=== PATIENT | male | born 1960 | race Caucasian/White ===

== ENCOUNTER 2018-01-03 14:30 | Observation (INO) ==
--- NOTE | 2018-01-03 15:10 | XR ---
EXAM DATE: 01/03/2018 2:43 PM EDT AGE/SEX: 57 years / Male INDICATIONS: Chest pain. CLINICAL DATA: This is the patient's initial encounter. Patient reports that signs and symptoms have been present for 1 day and indicates a pain score of 4/10. MEDICAL/SURGICAL HISTORY: Chronic obstructive pulmonary disease. Asthma. Bronchitis. None. COMPARISON: [facility] [place], CHEST 1V SINGLE AP, 11/29/2017. . FINDINGS: A single AP view of the chest demonstrates the lungs to be symmetrically aerated without evidence of mass, infiltrate or effusion. The cardiomediastinal contours are unremarkable. Osseous structures a re intact. CONCLUSION: Negative examination. Electronically signed by: Shashank Lott MD 01/03/2018 3:09 PM EDT
[2018-01-03 15:23] LABS: Baso % (Auto) 0.8 % (0.0-2.0); Eos # (Auto) 0.5 th/mm3 (0.0-0.4); Eos % (Auto) 7.9 % (0.0-4.0); Hematocrit 42.2 % (39.0-51.0); Hemoglobin 14.7 gm/dL (13.0-17.0); Lymph # (Auto) 1.8 th/mm3 (1.0-4.8); Lymph % (Auto) 31.1 % (9.0-44.0); Mean Corpuscular HGB Conc 34.8 % (32.0-36.0); Mean Corpuscular Hemoglobin 31.6 pg (27.0-34.0); Mean Corpuscular Volume 90.8 fL (80.0-100.0); Mean Platelet Volume 7.3 fL (7.0-11.0); Mono # (Auto) 0.5 th/mm3 (0.0-0.9); Mono % (Auto) 8.5 % (0.0-8.0); Neut # (Auto) 3.1 th/mm3 (1.8-7.7); Neut % (Auto) 51.7 % (16.0-70.0); Platelet Count 287 th/mm3 (150-450); Red Blood Count 4.65 mil/mm3 (4.50-5.90); Red Cell Distribution Width 13.2 % (11.6-17.2); White Blood Count 5.9 th/mm3 (4.0-11.0)
[2018-01-03 15:33] LABS: Activated Partial Thrombo Time 27.1 sec (24.3-30.1); Prothrombin Time 10.4 sec (9.8-11.6)
[2018-01-03 15:39] LABS: Alanine Aminotransferase 40 U/L (12-78); Anion Gap 8 meq/L (5-15); Aspartate Aminotransferase 28 U/L (15-37); Blood Urea Nitrogen 8 mg/dL (7-18); Calcium 8.6 mg/dL (8.5-10.1); Carbon Dioxide 28.9 meq/L (21.0-32.0); Chloride 101 meq/L (98-107); Glomerular Filtration Rate Greater Than 89 mL/min (>89); Glucose,Random 85 mg/dL (74-106); Lipase 60 U/L (73-393); Potassium 3.1 meq/L (3.5-5.1); Sodium 138 meq/L (136-145)
[2018-01-03 15:40] LABS: Magnesium 2.4 mg/dL (1.5-2.5)
[2018-01-03 15:44] LABS: Alkaline Phosphatase 90 U/L (45-117); Total Protein 8.4 g/dL (6.4-8.2)
--- NOTE | 2018-01-03 16:50 | ED ---
HPI General Chief Complaint: Chest Pain Stated Complaint: Tightness In Chest Complaint Time Seen by Provider: 01/03/18 14:43 Source: patient Mode of arrival: ambulatory Limitations: no limitations History of Present Illness HPI narrative: Patient is a 57-year-old male presenting to the emerge from for evaluation of chest pain. Patient states it started 1 PM yesterday, patient was at rest when it occurred. He states it starts in his shoulders radiates up to his neck and down his anterior chest wall. Pain is been intermittent since that time, today at approximately 7 AM it started to get worse. Patient was laying in bed when that happened. He states is pressure-like and tight. He reports pain is a 6 out of 10, constant. He reports associated shortness of breath. He denies any headaches, dizziness, abdominal pain, nausea, vomiting. Patient does drink 8 beers daily. He states that he feels like this happens when his potassium gets low. He was seen by his primary doctor yesterday who increased his potassium supplementation to 20 mEq daily. Past medical history significant for chronic back pain, hypertension, degenerative disc disease, obesity. He also reports a history of chronic bronchitis but does not have any history of being diagnosed with COPD or asthma. MD complaint: Reports chest pain STEMI Alert: No Onset (ago): day(s) Duration: intermittent Onset: during rest Pain location: Reports substernal Severity: moderate Severity scale (1-10): 6 Quality: Reports tightness and heaviness Pain radiation: Reports neck and other (Shoulders) Relieving factors: nothing Exacerbating factors: nothing Associated symptoms: Reports dyspnea Treatments prior to arrival chest pain: Reports none Related Data Home Medications Medication Instructions Recorded Confirmed amitriptyline 175 mg PO DAILY 11/29/17 01/03/18 amlodipine 35 mg PO DAILY 11/29/17 01/03/18 gabapentin 800 mg PO BID 11/29/17 01/03/18 hydrochlorothiazide 25 mg PO DAILY 11/29/17 01/03/18 hydrocodone-acetaminophen [[place]] 1 tab PO Q6H PRN 11/29/17 01/03/18 lorazepam [Ativan] 1 mg PO DAILY 11/29/17 01/03/18 omeprazole magnesium [Prilosec OTC] 40 mg PO DAILY 11/29/17 01/03/18 budesonide-formoterol [Symbicort] 2 puff INHALATION BID 01/03/18 01/03/18 cyclobenzaprine 10 mg PO TID PRN 01/03/18 01/03/18 prednisone 5 mg PO DAILY 01/03/18 01/03/18 tiotropium bromide [Spiriva 2 puff INHALATION DAILY 01/03/18 01/03/18 Respimat] Previous Rx's Medication Instructions Recorded potassium chloride [K-Tab] 20 meq PO DAILY #20 tab 11/30/17 Allergies Allergy/AdvReac Type Severity Reaction Status Date / Time buspirone Allergy Severe Edema Verified 11/29/17 22:06 carvedilol Allergy Severe Edema Verified 11/29/17 22:06 Review of Systems ROS: all other systems reviewed are negative [facility] Medical History Medical History Anxiety (Acute) Chronic bronchitis (Acute) Brachial plexus disorders (Acute) Chronic back pain (Acute) Hypertension (Acute) Surgical History Surgical History No history of previous surgery (Acute) Social History Social History Substance History: No History of Abuse Second Hand Smoke Exposure: No Smoking Status: Never smoker How Often Do You Have a Drink Containing Alcohol: Never Recent Travel in [facility] within the Last 8 Weeks: No Recent Out of Country Travel within the Last 8 Weeks: No Immunization History Tetanus Immunization: >5 Years Exam Narrative Exam Narrative: GENERAL: Obese, well-developed, alert male. Presenting in no acute distress. SKIN: Focused skin assessment warm/dry. HEAD: Atraumatic. Normocephalic. EYES: Pupils equal and round. No scleral icterus. No injection or drainage. ENT: No nasal bleeding or discharge. Mucous membranes pink and moist. NECK: Trachea midline. No JVD. CARDIOVASCULAR: Regular rate and rhythm. No murmur appreciated. RESPIRATORY: No accessory muscle use. Clear to auscultation. Breath sounds equal bilaterally. GASTROINTESTINAL: Abdomen soft, non-tender, nondistended. Hepatic and splenic margins not palpable. MUSCULOSKELETAL: No obvious deformities. No clubbing. No cyanosis. No edema. NEUROLOGICAL: Awake and alert. No obvious cranial nerve deficits. Motor grossly within normal limits. Normal speech. PSYCHIATRIC: Appropriate mood and affect; insight and judgment normal. Course Initial Documented Vital Signs Temperature 98.1 F 01/03/18 14:35 Pulse Rate 98 H 01/03/18 14:35 Blood Pressure 147/84 H 01/03/18 14:35 Pulse Oximetry 96 01/03/18 14:35 Last Documented Vital Signs Temperature 98.8 F 01/03/18 19:32 Pulse Rate 89 01/03/18 19:32 Respiratory Rate 18 01/03/18 19:32 Blood Pressure 148/90 H 01/03/18 19:32 Pulse Oximetry 96 01/03/18 19:32 Clinical Decision Support HEART Score Questions History: Moderately suspicious EKG: Non-specific repolarization disturbance Age: 45-64 years Risk Factors: 3 or more Risk Factors or Hx of Atherosclerotic Disease Initial Troponin: Normal Limit Heart Score HEART Score: 5 Medical Decision Making JOSELITO Attestation JOSELITO supervised visit: Yes Attestation: I, Dr. Miles, have reviewed the advance practice practitioner's documentation and am in agreement, met with the patient face to face, made the diagnosis, and the medical decision making was done by me. *My assessment and Findings: Patient is a 57-year-old male who presents with complaint of chest pain. EKG chest x-ray and labs are relatively unremarkable. He is chest pain-free at this time. He has been admitted to the chest pain center for serial troponins and EKGs. MDM Narrative Medical decision making narrative: Patient is 57-year-old male that presented to emerge from for evaluation of possibly 24 hours of chest pain. Patient is mildly hypertensive on arrival, he is otherwise well-appearing. Labs and imaging ordered and pending. Patient was given aspirin as well as nitro paste to his anterior chest wall. Labs reviewed, no acute findings identified other than a potassium level 3.1. Patient was given oral replacement. Chest x-ray shows no acute disease. Heart score is 5. Patient has had no previous cardiac workup. At this time patient will be admitted to the chest pain center for further evaluation. Patient are agreeable, patient was also seen and evaluated by my attending physician. Medical Screen Exam Complete: Yes Emergency Medical Condition: Yes Differential Diagnosis Differential Diagnosis: ACS versus [place] versus bronchitis versus pneumonia versus musculoskeletal pain versus other Medical Records Medical records reviewed: Yes I reviewed the patient's medical records. Lab Data Lab results reviewed: Yes I reviewed the patient's lab results. Result diagrams: 01/03/18 14:58 01/03/18 14:58 Lab Results 01/03/18 01/03/18 01/03/18 Range/Units 14:58 14:58 14:58 WBC 5.9 (4.0-11.0) th/mm3 RBC 4.65 (4.50-5.90) mil/mm3 Hgb 14.7 (13.0-17.0) gm/dL Hct 42.2 (39.0-51.0) % MCV 90.8 (80.0-100.0) fL MCH 31.6 (27.0-34.0) pg MCHC 34.8 (32.0-36.0) % RDW 13.2 (11.6-17.2) % Plt Count 287 (150-450) th/mm3 MPV 7.3 (7.0-11.0) fL Neut % (Auto) 51.7 (16.0-70.0) % Lymph % (Auto) 31.1 (9.0-44.0) % [place] % (Auto) 8.5 H (0.0-8.0) % Eos % (Auto) 7.9 H (0.0-4.0) % Baso % (Auto) 0.8 (0.0-2.0) % Neut # (Auto) 3.1 (1.8-7.7) th/mm3 Lymph # (Auto) 1.8 (1.0-4.8) th/mm3 [place] # (Auto) 0.5 (0.0-0.9) th/mm3 Eos # (Auto) 0.5 H (0.0-0.4) th/mm3 Baso # (Auto) 0.0 (0.0-0.2) th/mm3 WBC Differential . Differential Comment Auto diff final PT 10.4 (9.8-11.6) sec INR 1.0 Ratio APTT 27.1 (24.3-30.1) sec Sodium 138 (136-145) meq/L Potassium 3.1 L (3.5-5.1) meq/L Chloride 101 (98-107) meq/L Carbon Dioxide 28.9 (21.0-32.0) meq/L Anion Gap 8 (5-15) meq/L BUN 8 (7-18) mg/dL Creatinine 0.72 (0.60-1.30) mg/dL Estimated GFR Greater than 89 (>89) mL/min Random Glucose 85 (74-106) mg/dL Calcium 8.6 (8.5-10.1) mg/dL Magnesium (1.5-2.5) mg/dL Total Bilirubin 0.5 (0.2-1.0) mg/dL AST 28 (15-37) U/L ALT 40 (12-78) U/L Alkaline Phosphatase 90 (45-117) U/L Total Creatine Kinase (39-308) U/L Troponin I Less than 0.02 L (0.02-0.05) ng/mL Total Protein 8.4 H (6.4-8.2) g/dL Albumin 4.0 (3.4-5.0) g/dL Lipase 60 L (73-393) U/L 01/03/18 01/03/18 Range/Units 14:58 18:20 WBC (4.0-11.0) th/mm3 RBC (4.50-5.90) mil/mm3 Hgb (13.0-17.0) gm/dL Hct (39.0-51.0) % MCV (80.0-100.0) fL MCH (27.0-34.0) pg MCHC (32.0-36.0) % RDW (11.6-17.2) % Plt Count (150-450) th/mm3 MPV (7.0-11.0) fL Neut % (Auto) (16.0-70.0) % Lymph % (Auto) (9.0-44.0) % [place] % (Auto) (0.0-8.0) % Eos % (Auto) (0.0-4.0) % Baso % (Auto) (0.0-2.0) % Neut # (Auto) (1.8-7.7) th/mm3 Lymph # (Auto) (1.0-4.8) th/mm3 [place] # (Auto) (0.0-0.9) th/mm3 Eos # (Auto) (0.0-0.4) th/mm3 Baso # (Auto) (0.0-0.2) th/mm3 WBC Differential Differential Comment PT (9.8-11.6) sec INR Ratio APTT (24.3-30.1) sec Sodium (136-145) meq/L Potassium (3.5-5.1) meq/L Chloride (98-107) meq/L Carbon Dioxide (21.0-32.0) meq/L Anion Gap (5-15) meq/L BUN (7-18) mg/dL Creatinine (0.60-1.30) mg/dL Estimated GFR (>89) mL/min Random Glucose (74-106) mg/dL Calcium (8.5-10.1) mg/dL Magnesium 2.4 (1.5-2.5) mg/dL Total Bilirubin (0.2-1.0) mg/dL AST (15-37) U/L ALT (12-78) U/L Alkaline Phosphatase (45-117) U/L Total Creatine Kinase 84 81 (39-308) U/L Troponin I Less than 0.02 L (0.02-0.05) ng/mL Total Protein (6.4-8.2) g/dL Albumin (3.4-5.0) g/dL Lipase (73-393) U/L Imaging Data Radiologist's impression: Chest X-Ray 01/03/18 14:43 CONCLUSION: Negative examination. Discharge Plan Discharge Disposition Patient Disposition: 30 Still Patient Discharge Condition Condition: Stable Discharge Details Diagnosis: Atypical chest pain Physicians Team ED Provider: Jessi Miles ED Midlevel Provider: Suzanne Malin Primary Care Provider: David Rahman Attending Provider: Alvarado Villagomez ED Status: Left Department Discharge Information Discharge Date/Time: 01/03/18 19:09
[2018-01-03] MEDS ORDERED: Acetaminophen 500 MG Tablet PO PRN (17:49)
[2018-01-03 19:14] LABS: Creatine Kinase 81 U/L (39-308)
[2018-01-03] MEDS ORDERED: LORazepam 1 MG Tablet PO SCH (22:00)
[2018-01-03] MEDS ORDERED: Amitriptyline 100 MG Tablet PO SCH (22:00)
[2018-01-03 22:10] LABS: Creatine Kinase 81 U/L (39-308)
[2018-01-03] MEDS: Gabapentin 400 MG Capsule PO SCH (22:25)
[2018-01-04] MEDS: Gabapentin 400 MG Capsule PO SCH (08:09)
[2018-01-04 08:28] VITALS: RESP 16; O2SAT 97
--- NOTE | 2018-01-04 09:41 | P.HPCA ---
History of Present Illness Primary Care Physician: David Rahman MD Chief Complaint: Chest pain History of Present Illness: 57-year-old male with history of COPD, hypertension, and chronic back pain presents emergency room for further evaluation of nonexertional chest pain. Onset yesterday morning 0730. Location bilateral shoulders, arms, mid back, substernal, and neck. Characterizes a pressure. No associated symptoms of nausea, vomiting, dyspnea, or diaphoresis. Duration constant, much improved from yesterday. Currently described as intermittent "pinching pains with underlining pressure." No precipitating or relieving factors. Reports last month came to the emergency room for similar discomfort and potassium level was found to be 2.8. Received IV potassium and discharged home with oral potassium prescription. Since this time he has been taking between 10-20 mEq daily potassium. No recent illness, fever, or injury. No known coronary artery disease. Past cardiac testing Remote exercise cardiac testing reported to be normal Social history Known hypertension. No known coronary artery disease, hyperlipidemia, or diabetes. Smoker. Endorses lifetime oral tobacco use. Endorses 8-9 beers daily. Denies any illegal drug use. Disabled. Endorses sedentary lifestyle. . Family history Noncontributory for early onset cardiovascular disease. Mother from breast cancer. Father bladder cancer. - Diagnosis (1) Atypical chest pain (2) Tobacco use (3) Hypokalemia (4) Hypertension (5) Obesity (BMI 30.0-34.9) (6) Alcohol use Review of Systems All other systems reviewed negative except as stated in HPI [facility] - History History Provided By: Patient - Medical History Medical History: Medical History (Last Updated 01/04/18 @ 10:08 by ANTONINA Park) Anxiety Chronic bronchitis DDD (degenerative disc disease) Brachial plexus disorders Chronic back pain Hypertension - Surgical History Surgical History: Surgical History (Last Reviewed 01/03/18 @ 16:48 by ANTONINA Neil) No history of previous surgery - Family History Family History: Family History (Last Updated 01/04/18 @ 10:25 by ANTONINA Park) Mother Breast cancer Father Bladder cancer - Social History I have reviewed the patient's Social History: Yes - Tobacco History Second Hand Smoke Exposure: No Tobacco Use In Past 30 Days: Yes (oral tobacco) Smoking Status: Never smoker Tobacco Type: Smokeless Tobacco - Alcohol History How Often Do You Have a Drink Containing Alcohol: 4 or more times a week (8-9 beers daily) - Substance Use History Substance History: No History of Abuse - Travel History History of Recent Travel: No Recent Travel in the [place] Within the Last 8 Weeks: No Recent Travel Out of the Country Within the Last 8 Weeks: No - Immunization History Tetanus Immunization: >5 Years Medications and Allergies Active Medications: Active Medications Acetaminophen (Tylenol) 500 mg PO Q4H PRN PRN Reason: HEADACHE Last Admin: 01/03/18 22:28 Dose: 500 mg Amitriptyline HCl (Elavil) 100 mg PO [facility] Last Admin: 01/03/18 22:25 Dose: 100 mg Amitriptyline HCl (Elavil) 75 mg PO [facility] Last Admin: 01/03/18 22:25 Dose: 75 mg Gabapentin (Neurontin) 800 mg PO BID [facility] Last Admin: 01/04/18 08:09 Dose: 800 mg Lorazepam (Ativan) 1 mg PO [facility] Last Admin: 01/03/18 22:25 Dose: 1 mg Nitroglycerin (Nitrostat Sl) 0.4 mg SL Q5M PRN PRN Reason: CHEST PAIN Ondansetron HCl (Zofran Inj) 4 mg IV.PUSH Q6H PRN PRN Reason: NAUSEA Sodium Chloride (Ns Flush) 2 ml IV.FLUSH UNSCH PRN PRN Reason: FLUSH AFTER USING IV ACCESS Sodium Chloride (Ns Flush) 2 ml IV.FLUSH BID [facility] Last Admin: 01/04/18 08:31 Dose: 2 ml Allergies Allergy/AdvReac Type Severity Reaction Status Date / Time buspirone Allergy Severe Edema Verified 11/29/17 22:06 carvedilol Allergy Severe Edema Verified 11/29/17 22:06 Home Medications Medication Instructions Recorded Confirmed Type amitriptyline 175 mg PO DAILY 11/29/17 01/03/18 History gabapentin 800 mg PO BID 11/29/17 01/03/18 History hydrocodone-acetaminophen [[place]] 1 tab PO Q6H PRN 11/29/17 01/03/18 History lorazepam [Ativan] 1 mg PO DAILY 11/29/17 01/03/18 History omeprazole magnesium [Prilosec OTC] 40 mg PO DAILY 11/29/17 01/03/18 History budesonide-formoterol [Symbicort] 2 puff INHALATION BID 01/03/18 01/03/18 History cyclobenzaprine 10 mg PO TID PRN 01/03/18 01/03/18 History prednisone 5 mg PO DAILY 01/03/18 01/03/18 History tiotropium bromide [Spiriva 2 puff INHALATION DAILY 01/03/18 01/03/18 History Respimat] Exam Vital signs: Vital Signs 01/03/18 14:35 01/03/18 14:56 01/03/18 15:40 Temperature 98.1 F Pulse Rate 98 H 96 H 91 H Respiratory Rate 18 13 Blood Pressure 147/84 H 156/85 H 150/83 H Pulse Oximetry 96 96 95 01/03/18 16:06 01/03/18 17:32 01/03/18 17:49 Temperature 97.7 F 97.8 F 97.8 F Pulse Rate 88 87 87 Respiratory Rate 16 16 16 Blood Pressure 152/82 H 141/87 H 138/81 Pulse Oximetry 98 99 99 01/03/18 19:32 01/03/18 22:48 01/04/18 04:00 Temperature 98.8 F 97.9 F 97.9 F Pulse Rate 89 78 80 Respiratory Rate 18 18 18 Blood Pressure 148/90 H 127/84 129/74 Pulse Oximetry 96 94 L 91 L 01/04/18 08:00 Temperature 97.5 F L Pulse Rate 92 H Respiratory Rate 16 Blood Pressure 149/96 H Pulse Oximetry 97 Intake & Output 01/03/18 01/04/18 01/04/18 18:59 06:59 18:59 Weight 112.037 kg 112.037 kg Other: Date of Last Bowel Movement 01/03/18 Weight On Admission 112.037 kg Narrative: GENERAL: Alert WN, WD, NAD, pleasant, obese, male who appears older than stated age HEAD: NC, AT EYES: Sclera clear, conjunctiva without injection, pupils equal and round ENT: Mucous membranes pink and moist NECK: Supple, no masses, trachea midline CV: RRR, without murmur, rub, gallop, no JVD, S1-S2 no S3-S4. No carotid or femoral bruits. Chest wall nontender to palpation. RESP: Clear lungs throughout bilateral, no crackles, wheeze, rhonchi, symmetrical chest rise, nonlabored, able to speak in full sentences ABD: Soft, NT, ND, no masses, positive bowel tones EXT: Pulses +2x4, no dependent edema MS: Normal tone x4 extremities, nontender, no obvious deformities, full range of motion NEURO: CN II through CN XII grossly intact, motor strength 5/5 PSYCH: A+O x3, pleasant affect, appropriate speech, mood, insight and judgment SKIN: Normal turgor, normal texture, no lesions, no rashes, brisk cap refill, even hair distribution Results 01/03/18 14:58 01/04/18 09:56 Cardiac Enzymes 01/03/18 01/03/18 01/03/18 Range/Units 14:58 18:20 21:19 AST 28 (15-37) U/L Troponin I Less than 0.02 L Less than 0.02 L Less than 0.02 L (0.02-0.05) ng/mL Coagulation 01/03/18 Range/Units 14:58 PT 10.4 (9.8-11.6) sec APTT 27.1 (24.3-30.1) sec CBC 01/03/18 Range/Units 14:58 WBC 5.9 (4.0-11.0) th/mm3 RBC 4.65 (4.50-5.90) mil/mm3 Hgb 14.7 (13.0-17.0) gm/dL Hct 42.2 (39.0-51.0) % Plt Count 287 (150-450) th/mm3 Neut # (Auto) 3.1 (1.8-7.7) th/mm3 Lymph # (Auto) 1.8 (1.0-4.8) th/mm3 [place] # (Auto) 0.5 (0.0-0.9) th/mm3 Eos # (Auto) 0.5 H (0.0-0.4) th/mm3 Baso # (Auto) 0.0 (0.0-0.2) th/mm3 Comprehensive Metabolic Panel 01/03/18 Range/Units 14:58 Sodium 138 (136-145) meq/L Potassium 3.1 L (3.5-5.1) meq/L Chloride 101 (98-107) meq/L Carbon Dioxide 28.9 (21.0-32.0) meq/L BUN 8 (7-18) mg/dL Creatinine 0.72 (0.60-1.30) mg/dL Calcium 8.6 (8.5-10.1) mg/dL AST 28 (15-37) U/L ALT 40 (12-78) U/L Alkaline Phosphatase 90 (45-117) U/L Total Protein 8.4 H (6.4-8.2) g/dL Albumin 4.0 (3.4-5.0) g/dL Intake and Output 01/03/18 01/04/18 01/04/18 22:59 06:59 14:59 Other: Date of Last Bowel Movement 01/03/18 Weight 112.037 kg Weight On Admission 112.037 kg - Imaging and Cardiology Imaging: Impressions Chest X-Ray 01/03/18 14:43 CONCLUSION: Negative examination. EKG interpretations - EKG EKG results cardiology: sinus rhythm (nsr, lad, no st t segment changes) Caprini VTE Risk Assessment Caprini VTE Risk Assessment: No/Low Risk (score <= 1) Caprini Risk Assessment Model: Point Value = 1 Point Value = 2 Point Value = 3 Point Value = 5 Age 41-60 Minor surgery BMI > 25 kg/m2 Swollen legs Varicose veins or History of unexplained or recurrent spontaneous Oral contraceptives or hormone replacement Sepsis (< 1 month) Serious lung disease, including pneumonia (< 1 month) Abnormal pulmonary function Acute myocardial infarction Congestive heart failure (< 1 month) History of inflammatory bowel disease Medical patient at bed rest Age 61-74 Arthroscopic surgery Major open surgery (> 45 min) Laparoscopic surgery (> 45 min) Malignancy Confined to bed (> 72 hours) Immobilizing plaster cast Central venous access Age >= 75 History of VTE Family history of VTE Factor V Leiden Prothrombin [id number] Lupus anticoagulant Anticardiolipin antibodies Elevated serum homocysteine Heparin-induced thrombocytopenia Other congenital or acquired thrombophilia Stroke (< 1 month) Elective arthroplasty Hip, pelvis, or leg fracture Acute spinal cord injury (< 1 month) Prophylaxis Regimen: Total Risk Factor Score Risk Level Prophylaxis Regimen 0-1 Low Early ambulation 2 Moderate Order ONE of the following: *Sequential Compression Device (SCD) *Heparin 5000 units SQ BID 3-4 Higher Order ONE of the following medications: *Heparin 5000 units SQ TID *Enoxaparin/Lovenox 40 mg SQ daily (WT < 150 kg, CrCl > 30 mL/min) *Enoxaparin/Lovenox 30 mg SQ daily (WT < 150 kg, CrCl > 10-29 mL/min) *Enoxaparin/Lovenox 30 mg SQ BID (WT < 150 kg, CrCl > 30 mL/min) AND/OR *Sequential Compression Device (SCD) 5 or more Highest Order ONE of the following medications: *Heparin 5000 units SQ TID (Preferred with Epidurals) *Enoxaparin/Lovenox 40 mg SQ daily (WT < 150 kg, CrCl > 30 mL/min) *Enoxaparin/Lovenox 30 mg SQ daily (WT < 150 kg, CrCl > 10-29 mL/min) *Enoxaparin/Lovenox 30 mg SQ BID (WT < 150 kg, CrCl > 30 mL/min) AND *Sequential Compression Device (SCD) Assessment and Plan - Assessment (1) Atypical chest pain Code(s): R07.89 - Other chest pain Status: Acute Plan: Admitted chest pain center. Monitored on telemetry overnight. ACS ruled out 3 sets of EKGs and cardiac enzymes. Seen and evaluated by Dr. Alvarado Villagomez. Proceed with exercise cardiac testing. If unremarkable, plans are to discharge home with follow-up with PCP. Reassurance provided discomfort unlikely to be cardiac related however due to multiple risk factors not unreasonable to receive with ETT. (2) Tobacco use Code(s): Z72.0 - Tobacco use Status: Chronic Plan: Strongly encouraged and stressed importance of tobacco cessation. Instructed to quit using oral tobacco. (3) Hypokalemia Code(s): E87.6 - Hypokalemia Status: Acute Plan: 60 mEq potassium given in ER. Recheck potassium level now. Likely will switch hydrochlorothiazide to Aldactone. Encouraged decreasing alcohol intake. (4) Hypertension Code(s): I10 - Essential (primary) hypertension Status: Chronic Plan: Discussed taking amlodipine 10 mg twice daily not more effective than taking 10 mg daily. Discussed taking amlodipine 10 mg daily and switching diuretic from hydrochlorothiazide to Aldactone. This will be determined upon discharge. Discussed importance of tight blood pressure control. Follow-up with primary care provider. If discharged from aldactone will instructed to stop taking potassium supplements. (5) Obesity (BMI 30.0-34.9) Code(s): E66.9 - Obesity, unspecified Status: Chronic Plan: Encouraged lifestyle and dietary modifications. Discussed losing weight will likely improve chronic back pain. (6) Alcohol use Code(s): Z78.9 - Other specified health status Status: Chronic Plan: Strongly encouraged to decrease alcohol intake to no more than 2 drinks daily. Consider stopping all alcohol use. H&P: Quality - VTE Deep Vein Thrombosis/Pulmonary Embolism Present on Admission: No (4) Hypertension Qualifiers: Hypertension type: unspecified Qualified Code(s): I10 - Essential (primary) hypertension
[2018-01-04] MEDS ORDERED: amLODIPine 10 MG Tablet PO SCH (11:00)
[2018-01-04 12:28] VITALS: BP 141/82; PULSE 90; TEMP 97.8
--- NOTE | 2018-01-04 15:42 | TR ---
Date Performed: 01/04/2018 Time Performed: 11:23:07 DOCTOR: Alvarado Villagomez DRUG LIST: CLINICAL HISTORY: CHEST PAIN REASON FOR TEST: REASON FOR ENDING: OBSERVATION: CONCLUSION: Modified lisy protocol completed. Speed maintained at 1.7MPH, grade modified during exam. Stopped test secondary due to leg fatigue. Maximum [place]=454 Max HR Achieved=80.0% Total Exercis e Time=6:07 Maximum CR=926/86 . No reprod chest pain. No ectopy. Fair exercise tolerance, good effort . No st t segment changes to sugg ischemia. Normal bp response. Suboptimal testing due to target hear t. Recovery quick and unremarkable. COMMENTS: submaximal stress test,negative for ischemia.
--- NOTE | 2018-01-04 15:46 | ECG ---
Date Performed: 01/03/2018 Time Performed: 21:39:30 PTAGE: 57 years EKG: Sinus rhythm MARKED LEFT AXIS DEVIATION Poor R wave progression ABNORMAL ECG PREVIOUS TRACING : 01/03/2018 18.31 Since previous tracing, no significant change noted DOCTOR: Alvarado Villagomez Interpretating Date/Time 01/04/2018 15:44:29
--- NOTE | 2018-01-04 15:47 | ECG ---
Date Performed: 01/03/2018 Time Performed: 18:31:07 PTAGE: 57 years EKG: Sinus rhythm POSSIBLE LEFT ATRIAL ENLARGEMENT MARKED LEFT AXIS DEVIATION Poor R wave progression ABNORMAL ECG PREVIOUS TRACING : 01/03/2018 15.09 Since previous tracing, no significant change noted DOCTOR: Alvarado Villagomez Interpretating Date/Time 01/04/2018 15:46:10
--- NOTE | 2018-01-04 15:47 | ECG ---
Date Performed: 01/03/2018 Time Performed: 15:09:40 PTAGE: 57 years EKG: Sinus rhythm POSSIBLE LEFT ATRIAL ENLARGEMENT LEFT ANTERIOR FASCICULAR BLOCK Poor R wave progression ABNORMAL ECG PREVIOUS TRACING : 11/29/2017 22.02 DOCTOR: Alvarado Villagomez Interpretating Date/Time 01/04/2018 15:47:34
== END 2018-01-04 14:06 | disposition home or self-care (01) ==
LOC: NEPE 14:30 → NEDA 14:30 → NEPGCP 19:05
DX: M54.9 Dorsalgia, unspecified; Z80.3 Family history of malignant neoplasm of breast; Z68.33 Body mass index [BMI] 33.0-33.9, adult; J20.9 Acute bronchitis, unspecified; I10 Essential (primary) hypertension; Z79.51 Long term (current) use of inhaled steroids; E87.6 Hypokalemia; E66.9 Obesity, unspecified; G89.29 Other chronic pain; F17.200 Nicotine dependence, unspecified, uncomplicated; J44.0 Chronic obstructive pulmonary disease with (acute) lower respiratory infection; R94.31 Abnormal electrocardiogram [ECG] [EKG]; Z80.52 Family history of malignant neoplasm of bladder; F41.9 Anxiety disorder, unspecified; R07.9 Chest pain, unspecified

== ENCOUNTER 2018-01-10 16:54 | Inpatient (IN) ==
[2018-01-10] MEDS ORDERED: Sod Chloride 0.9% Inj 1,000 ML IV.SIG ONE (17:32)
[2018-01-10] MEDS ORDERED: Tetanus/Diphtheria Toxoid Adult Vaccine Inj 0.5 ML Vial IM ONE (17:38)
--- NOTE | 2018-01-10 17:40 | ED ---
HPI General Chief complaint: Head Injury Stated complaint: Fall/Head Complaint Time Seen by Provider: 01/10/18 17:08 Source: patient Mode of arrival: ambulatory Limitations: no limitations History of Present Illness HPI Narrative: 57-year-old male with PMH of HTN presents the ED via private vehicle for evaluation after fall from standing. This occurred approximately 45 minutes before arrival. Patient states that he slipped in a puddle, fell backwards, striking his head against the concrete. He denies loss of consciousness. On presentation he complains of "feeling out of it". He denies headache, vision changes, malocclusion. He notes that he has had both red and clear fluids draining from the nasal passages. He notes bleeding from the right ear. He denies unilateral weakness, difficulties with speech, facial droop, pain with ocular motions, numbness, tingling, weakness, limitations or range of motion of the extremities. He has been ambulatory since the accident. No treatment attempted before arrival. Related Data Home Medications Medication Instructions Recorded Confirmed amitriptyline 175 mg PO DAILY 11/29/17 01/10/18 gabapentin 800 mg PO BID 11/29/17 01/10/18 hydrocodone-acetaminophen [[place]] 1 tab PO Q6H PRN 11/29/17 01/10/18 lorazepam [Ativan] 1 mg PO DAILY 11/29/17 01/10/18 omeprazole magnesium [Prilosec OTC] 40 mg PO DAILY 11/29/17 01/10/18 budesonide-formoterol [Symbicort] 2 puff INHALATION BID 01/03/18 01/10/18 cyclobenzaprine 10 mg PO TID PRN 01/03/18 01/10/18 prednisone 5 mg PO DAILY 01/03/18 01/10/18 tiotropium bromide [Spiriva 2 puff INHALATION DAILY 01/03/18 01/10/18 Respimat] Previous Rx's Medication Instructions Recorded amlodipine [Norvasc] 10 mg PO DAILY #30 tab 01/04/18 spironolactone [Aldactone] 25 mg PO DAILY #30 tab 01/04/18 Allergies Allergy/AdvReac Type Severity Reaction Status Date / Time buspirone Allergy Severe Edema Verified 01/10/18 17:14 carvedilol Allergy Severe Edema Verified 10/25/18 17:14 Review of Systems ROS: all other systems reviewed are negative [facility] Medical History Medical History Anxiety (Acute) Brachial plexus disorders (Acute) Chronic back pain (Acute) Chronic bronchitis (Acute) DDD (degenerative disc disease) (Acute) Hypertension (Acute) Surgical History Surgical History No history of previous surgery (Acute) Family History Family History Mother Breast cancer Father Bladder cancer Social History Social History Substance History: No History of Abuse Second Hand Smoke Exposure: No Smoking Status: Never smoker Tobacco Type: Smokeless Tobacco How Often Do You Have a Drink Containing Alcohol: 4 or more times a week Hx Recent Travel: No Recent Out of Country Travel within the Last 8 Weeks: No Immunization History Tetanus Immunization: >5 Years Exam Narrative Exam Narrative: GENERAL: Well-nourished, well-developed white male in no acute distress. Sitting up on the stretcher wearing a c-collar. SKIN: Warm and dry. 3-4 cm laceration posterior scalp. No active bleeding. HEAD: Normocephalic. Atraumatic. No raccoon eyes or carlton sign. No tenderness to palpation of the skull. No bony step-offs. No malocclusion of the teeth. EYES: No scleral icterus. No injection or drainage. PERRLA. EOMI. ENT: Right tympanic membrane obscured by blood in the ear canal. Left tympanic membrane pearly [place]win. Nasal mucosa is moist. No evidence of septal hematoma. Small amount of epistaxis. Oropharynx without erythema, edema or exudate. NECK: Supple, trachea midline. No JVD or lymphadenopathy. Cervical collar retained pending radiologic studies. CARDIOVASCULAR: Regular rate and rhythm without murmurs, gallops, or rubs. 2+ DP and radial pulses bilaterally. RESPIRATORY: Breath sounds clear and equal bilaterally. No accessory muscle use. GASTROINTESTINAL: Abdomen soft, non-tender, nondistended. + Bowel sounds MUSCULOSKELETAL: No cyanosis, or edema. No tenderness to palpation or limitations to range of motion of the joints of the upper and lower extremities bilaterally. NEUROLOGICAL: Awake and alert. Cranial nerves II through XII intact. Motor and sensory grossly within normal limits. 5/5 muscle strength in all muscle groups. Normal speech. BACK: Nontender without obvious deformity. No CVA tenderness. No midline tenderness. Procedures Laceration Laceration 1: Site: scalp Size (cm): 2.5 Description: linear Depth: simple, single layer Pre-repair:: wound explored, irrigated extensively and deep structures intact Skin layer closed with: ana Number of sutures:: 5 Course Initial Documented Vital Signs Temperature 98.3 F 01/10/18 17:00 Pulse Rate 100 H 01/10/18 17:00 Respiratory Rate 20 01/10/18 17:00 Blood Pressure 152/84 H 01/10/18 17:00 Pulse Oximetry 97 01/10/18 17:00 Last Documented Vital Signs Temperature 98.3 F 01/10/18 17:00 Pulse Rate 92 H 01/10/18 18:30 Respiratory Rate 18 01/10/18 18:30 Blood Pressure 155/87 H 01/10/18 18:30 Pulse Oximetry 97 01/10/18 18:30 Medical Decision Making JOSELITO Attestation JOSELTIO supervised visit: Yes Attestation: I, Dr. Coyle, have reviewed the advance practice practitioner's documentation and am in agreement, met with the patient face to face, made the diagnosis, and the medical decision making was done by me. *My assessment and Findings: Patient is a 57 year old male who comes in after a slip and fall today. He complains of pain to his head and feeling "woozy." Exam shows laceration to the back of the head, bleeding in the right ear. He is awake, alert, oriented x 4. CT head concerning for subdural, subarachnoid and skull fracture. Dr. Reyes of neurosurgery consulted, patient admitted to ICU. [facility] Narrative Medical decision making narrative: 57-year-old male with PMH of HTN, current smoker presents the ED for evaluation after fall from standing. Patient states that he struck the back of his head on the concrete. He denies loss of consciousness. On presentation he complains of "feeling out of it." Vitals reviewed. No focal neuro deficits on exam. He does have a 2.5 cm laceration on the posterior scalp, blood in the right external canal which obscures the tympanic membrane and small amount of rhinorrhea. No evidence of septal hematoma. Scalp laceration was closed with ana. CT scans of the head, cervical spine and facial bones reveal right temporal bone fracture, nondisplaced and small bilateral subdural and subarachnoid hemorrhages. No midline shift noted. I discussed the results of the workup with the patient and his . They are agreeable to admission. I spoke with Dr. Reyes who recommends admission to the ICU. I spoke with Dr. Jeter who agrees to accept the patient to the ICU. Please see neurosurgery and medicine notes for disposition. Medical Screen Exam Complete: Yes Emergency Medical Condition: Yes Differential Diagnosis Differential Diagnosis: Fall from standing versus skull fracture versus ICH versus other Lab Data Result diagrams: 01/10/18 17:39 01/10/18 17:39 Lab Results 01/10/18 01/10/18 01/10/18 Range/Units 17:39 17:39 17:39 WBC 7.0 (4.0-11.0) th/mm3 RBC 4.61 (4.50-5.90) mil/mm3 Hgb 14.7 (13.0-17.0) gm/dL Hct 42.2 (39.0-51.0) % MCV 91.5 (80.0-100.0) fL MCH 31.9 (27.0-34.0) pg MCHC 34.9 (32.0-36.0) % RDW 13.3 (11.6-17.2) % Plt Count 256 (150-450) th/mm3 MPV 7.2 (7.0-11.0) fL Neut % (Auto) 62.5 (16.0-70.0) % Lymph % (Auto) 24.8 (9.0-44.0) % [place] % (Auto) 7.8 (0.0-8.0) % Eos % (Auto) 4.2 H (0.0-4.0) % Baso % (Auto) 0.7 (0.0-2.0) % Neut # (Auto) 4.3 (1.8-7.7) th/mm3 Lymph # (Auto) 1.7 (1.0-4.8) th/mm3 [place] # (Auto) 0.5 (0.0-0.9) th/mm3 Eos # (Auto) 0.3 (0.0-0.4) th/mm3 Baso # (Auto) 0.1 (0.0-0.2) th/mm3 WBC Differential . Differential Comment Auto diff final PT 10.5 (9.8-11.6) sec INR 1.0 Ratio Sodium (136-145) meq/L Potassium (3.5-5.1) meq/L Chloride (98-107) meq/L Carbon Dioxide (21.0-32.0) meq/L Anion Gap (5-15) meq/L BUN (7-18) mg/dL Creatinine (0.60-1.30) mg/dL Estimated GFR (>89) mL/min Random Glucose (74-106) mg/dL Calcium (8.5-10.1) mg/dL Blood Type O Positive Antibody Screen Negative 01/10/18 Range/Units 17:39 WBC (4.0-11.0) th/mm3 RBC (4.50-5.90) mil/mm3 Hgb (13.0-17.0) gm/dL Hct (39.0-51.0) % MCV (80.0-100.0) fL MCH (27.0-34.0) pg MCHC (32.0-36.0) % RDW (11.6-17.2) % Plt Count (150-450) th/mm3 MPV (7.0-11.0) fL Neut % (Auto) (16.0-70.0) % Lymph % (Auto) (9.0-44.0) % [place] % (Auto) (0.0-8.0) % Eos % (Auto) (0.0-4.0) % Baso % (Auto) (0.0-2.0) % Neut # (Auto) (1.8-7.7) th/mm3 Lymph # (Auto) (1.0-4.8) th/mm3 [place] # (Auto) (0.0-0.9) th/mm3 Eos # (Auto) (0.0-0.4) th/mm3 Baso # (Auto) (0.0-0.2) th/mm3 WBC Differential Differential Comment PT (9.8-11.6) sec INR Ratio Sodium 136 (136-145) meq/L Potassium 3.4 L (3.5-5.1) meq/L Chloride 98 (98-107) meq/L Carbon Dioxide 27.6 (21.0-32.0) meq/L Anion Gap 10 (5-15) meq/L BUN 9 (7-18) mg/dL Creatinine 0.83 (0.60-1.30) mg/dL Estimated GFR Greater than 89 (>89) mL/min Random Glucose 88 (74-106) mg/dL Calcium 8.4 L (8.5-10.1) mg/dL Blood Type Antibody Screen Imaging Data Radiologist's impression: Head CT 01/10/18 17:30 CONCLUSION: 1. Small amount of subdural and subarachnoid hemorrhage anteriorly predominantly in the left frontal region associated with a small hemorrhagic contusions in the medial left frontal lobe. No significant mass effect or midline shift this time. 2. Remote lacunar infarct left basal ganglia. . Cervical Spine CT 01/10/18 17:31 CONCLUSION: 1. No acute findings. Mild degenerative change. Face CT 01/10/18 17:36 CONCLUSION: 1. Nondisplaced fracture of the right temporal bone with some hemorrhage in the aerated portions of the right temporal bone. Trace pneumocephalus on the right. 2. There is also trace subdural and subarachnoid hemorrhage anteriorly predominantly of the left frontal region with a small hemorrhagic contusion of the left frontal lobe. There is also trace subarachnoid and subdural hemorrhage in the right temporal region. No significant mass effect or shift. Discharge Plan Discharge Disposition Patient Disposition: 30 Still Patient Physicians Team ED Provider: Brii Coyle ED Midlevel Provider: Soniya Crow Primary Care Provider: David Rahman Attending Provider: Jaycee Jeter Other Providers: Zelalem Reyes Status ED Status: Admitted Patient
[2018-01-10 18:05] LABS: Baso # (Auto) 0.1 th/mm3 (0.0-0.2); Baso % (Auto) 0.7 % (0.0-2.0); Eos # (Auto) 0.3 th/mm3 (0.0-0.4); Eos % (Auto) 4.2 % (0.0-4.0); Hematocrit 42.2 % (39.0-51.0); Hemoglobin 14.7 gm/dL (13.0-17.0); Lymph # (Auto) 1.7 th/mm3 (1.0-4.8); Lymph % (Auto) 24.8 % (9.0-44.0); Mean Corpuscular HGB Conc 34.9 % (32.0-36.0); Mean Corpuscular Hemoglobin 31.9 pg (27.0-34.0); Mean Corpuscular Volume 91.5 fL (80.0-100.0); Mean Platelet Volume 7.2 fL (7.0-11.0); Mono # (Auto) 0.5 th/mm3 (0.0-0.9); Mono % (Auto) 7.8 % (0.0-8.0); Neut # (Auto) 4.3 th/mm3 (1.8-7.7); Neut % (Auto) 62.5 % (16.0-70.0); Platelet Count 256 th/mm3 (150-450); Red Blood Count 4.61 mil/mm3 (4.50-5.90); Red Cell Distribution Width 13.3 % (11.6-17.2)
--- NOTE | 2018-01-10 18:14 | CT ---
EXAM DATE: 01/10/2018 6:09 PM EDT AGE/SEX: 57 years / Male INDICATIONS: Trauma, fall. Laceration to back of head. CLINICAL DATA: This is the patient's initial encounter. Patient reports that signs and symptoms have been present for 1 day and indicates a pain score of 7/10. MEDICAL/SURGICAL HISTORY: Hypertension. Brachial plexus disorder, degenerative disc disease. None. RADIATION DOSE: 66.34 CTDI (mGy) COMPARISON: No prior exams available for comparison. TECHNIQUE: CT of the head without contrast. Using automated exposure control and adjustment of the mA and/or kV according to patient size, radiation dose was kept as low as reasonably achievable to ob tain optimal diagnostic quality images. DICOM format image data is available electronically for revi ew and comparison. FINDINGS: There is a small amount of subdural hemorrhage anteriorly predominantly on the left side and extendin g into the interhemispheric fissure. This measures around 3 mm in thickness. There is also some subar achnoid hemorrhage anteriorly and a small hemorrhagic contusion in the left frontal lobe medially. Th ere is no significant mass effect or midline shift at this time. No hydrocephalus. No calvarial fract ure is identified. There is mucosal thickening in the frontal sinus and partial opacification of the ethmoid air cells and maxillary sinuses. Remote lacunar infarct left basal ganglia. CONCLUSION: 1. Small amount of subdural and subarachnoid hemorrhage anteriorly predominantly in the left frontal region associated with a small hemorrhagic contusions in the medial left frontal lobe. No significan t mass effect or midline shift this time. 2. Remote lacunar infarct left basal ganglia. . Electronically signed by: Charlie Stone MD 01/10/2018 6:13 PM EDT
[2018-01-10 18:15] LABS: Prothrombin Time 10.5 sec (9.8-11.6)
[2018-01-10 18:21] LABS: Anion Gap 10 meq/L (5-15); Blood Urea Nitrogen 9 mg/dL (7-18); Calcium 8.4 mg/dL (8.5-10.1); Carbon Dioxide 27.6 meq/L (21.0-32.0); Chloride 98 meq/L (98-107); Glomerular Filtration Rate Greater Than 89 mL/min (>89); Glucose,Random 88 mg/dL (74-106); Potassium 3.4 meq/L (3.5-5.1); Sodium 136 meq/L (136-145)
--- NOTE | 2018-01-10 18:25 | CT ---
EXAM DATE: 01/10/2018 6:10 PM EDT AGE/SEX: 57 years / Male INDICATIONS: Trauma, fall. Laceration to back of head. CLINICAL DATA: This is the patient's initial encounter. Patient reports that signs and symptoms have been present for 1 day and indicates a pain score of 7/10. MEDICAL/SURGICAL HISTORY: Hypertension. Brachial plexus disorder, degenerative disc disease. N one. RADIATION DOSE: 25.72 CTDI (mGy) COMPARISON: No prior exams available for comparison. TECHNIQUE: Contiguous axial images were obtained using helical multirow detector technique. The vol umetric data was post-processed with multiplanar reconstruction in oblique axial, sagittal, and coron al planes. Using automated exposure control and adjustment of the mA and/or kV according to patient s ize, radiation dose was kept as low as reasonably achievable to obtain optimal diagnostic quality dorinda ges. DICOM format image data is available electronically for review and comparison. FINDINGS: There is mild degenerative disc disease. No fracture or spondylolisthesis. No prevertebral soft tissu e swelling. There is no significant bony canal stenosis. CONCLUSION: 1. No acute findings. Mild degenerative change. Electronically signed by: Charlie Stone MD 01/10/2018 6:24 PM EDT
--- NOTE | 2018-01-10 18:30 | CT ---
EXAM DATE: 01/10/2018 6:10 PM EDT AGE/SEX: 57 years / Male INDICATIONS: Trauma, fall. Laceration to back of head. CLINICAL DATA: This is the patient's initial encounter. Patient reports that signs and symptoms have been present for 1 day and indicates a pain score of 7/10. MEDICAL/SURGICAL HISTORY: Hypertension. Brachial plexus disorder, degenerative disc disease. N one. RADIATION DOSE: 21.96 CTDI (mGy) COMPARISON: No prior exams available for comparison. TECHNIQUE: Contiguous images in the axial and coronal planes were obtained using helical multirow de tector technique. Using automated exposure control and adjustment of the mA and/or kV according to p atient size, radiation dose was kept as low as reasonably achievable to obtain optimal diagnostic yariel lity images. DICOM format image data is available electronically for review and comparison. FINDINGS: There is a nondisplaced fracture through the anterolateral aspect of the right temporal bone predomin antly involving the aerated portion with fracture line extending slightly into the squamous portion o f the right temporal lobe, nondisplaced. There is a small amount of pneumocephalus on the right side no temporal bone fracture. Fracture line extends to toward the base of the zygomatic arch posteriorly but does not extend into the zygomatic arch. Partial opacification ethmoid air cells and mucosal thickening in the remainder of the paranasal sinu ses. CONCLUSION: 1. Nondisplaced fracture of the right temporal bone with some hemorrhage in the aerated portions of the right temporal bone. Trace pneumocephalus on the right. 2. There is also trace subdural and subarachnoid hemorrhage anteriorly predominantly of the left fro ntal region with a small hemorrhagic contusion of the left frontal lobe. There is also trace subarach noid and subdural hemorrhage in the right temporal region. No significant mass effect or shift. Electronically signed by: Charlie Stone MD 01/10/2018 6:29 PM EDT
[2018-01-10] MEDS ORDERED: Morphine Inj 4 MG/ML Vial IV.PUSH ONE ×2 (18:49→21:08)
[2018-01-10] MEDS ORDERED: Bisacodyl 10 MG Supp RECTAL PRN (21:10)
[2018-01-10] MEDS ORDERED: Potassium Phosphate Inj 30 MMOL in Sodium Chlor 0.9% Inj 250 ML IV.SIG PRN (21:13)
[2018-01-10] MEDS ORDERED: Potassium Chlor 20 mEq Premix 20 MEQ/100 ML PIGGYBACK IV.SIG PRN ×2 (21:13)
[2018-01-10] MEDS ORDERED: Potassium Phosphate 500 MG Soluble Tablet PO PRN ×2 (21:13)
[2018-01-10] MEDS ORDERED: Magnesium Oxide 400 MG Tablet PO PRN (21:13)
[2018-01-10] MEDS ORDERED: Magnesium Sulfate Inj 2 GM in Sodium Chlor 0.9% Inj 96 ML IV.SIG PRN (21:13)
[2018-01-10] MEDS ORDERED: Potassium Chloride 25 MEQ Effervescent Tablet PO PRN (21:13)
[2018-01-10] MEDS ORDERED: Potassium Chlor 40 mEq Premix 40 MEQ/100 ML PIGGYBACK IV.SIG PRN ×2 (21:13)
[2018-01-10] MEDS ORDERED: Sodium Phosphate Inj 30 MMOL in Sodium Chlor 0.9% Inj 250 ML IV.SIG PRN (21:13)
[2018-01-10] MEDS ORDERED: Magnesium Sulfate Inj 4 GM in Sodium Chlor 0.9% Inj 92 ML IV.SIG PRN (21:13)
[2018-01-10] MEDS ORDERED: Sod Chloride 0.9% Inj 1,000 ML IV.CONT SCH (21:15)
[2018-01-10] MEDS ORDERED: hydrALAZINE HCl Inj 20 MG/ML Vial IV.PUSH PRN (21:15)
--- NOTE | 2018-01-10 23:19 | P.HPCC ---
History of Present Illness Service: Critical care medicine Primary Care Physician: David Rahman MD Chief Complaint: Fall with skull fracture, hemorrhagic contusions, subdural History of Present Illness: 57-year-old [id number] male with past medical history of hypertension, chronic pain related to left brachial plexus injury and chronic back pain presents to [facility] emergency department after he slipped on a slick wet surface of his carport around 4:15 pm on 01/10. He says he hit the back of his head on concrete and then got up unassisted. Denies LOC or seizure. He was not feeling like himself and was nauseated with epistaxis and bleeding from his right ear so he sought medical attention. Workup included CT brain/face which demonstrated nondisplaced R temporal bone fracture with trace pneumocephalus, trace R temporal subdural and subarachnoid, and L frontal contusion. CT Cspine showed no acute findings. Scalp laceration was repaired with ana in the ED. Neurosurgery was consulted by emergency medicine provider and admission to [facility] operations has been requested. He is not on antihypertensive or antiplatelet therapy. He is on antihypertensives and already took them today. - Diagnosis (1) Fall (2) Temporal skull fracture (3) Frontal lobe contusion (4) Contusion of right temporal lobe (5) Anxiety (6) Chronic pain (7) Brachial plexus injury, left (8) Hypokalemia (9) Hypertension (10) Obesity (BMI 30.0-34.9) (11) Chronic GERD (12) Bronchitis Inpatient Certification: I certify that the inpatient services were ordered in accordance with Medicare regulations governing the order. This includes certification that hospital inpatient services are reasonable and necessary and in the case of services not specified as inpatient-only under 42 CFR 419.22(n), that they are appropriately provided as inpatient services in accordance to with the 2-midnight benchmark under 43 CFR 412.3(e) Estimated Total Length of Stay (Days): 2 Plans for Post Hospital Care: Home Review of Systems Constitutional: Denies anorexia Eyes: Denies change in vision, Denies loss of vision Cardiovascular: Denies chest pain Respiratory: Denies cough Gastrointestinal: Denies abdominal pain Genitourinary: Denies painful urination Musculoskeletal: Denies tingling Neurologic: Denies abnormal hearing Psychiatric: Reports anxiety Endocrine: Denies excessive sweating, Denies increased hunger Hematologic/Lymphatic: Denies easy bleeding, Denies easy bruising PMFSH - History History Provided By: Patient - Medical History Medical History: Medical History (Last Updated 01/10/18 @ 23:41 by Jaycee Jeter MD) GERD (gastroesophageal reflux disease) Anxiety Brachial plexus disorders Chronic back pain Chronic bronchitis DDD (degenerative disc disease) Hypertension - Surgical History Surgical History: Surgical History (Last Reviewed 01/10/18 @ 18:45 by VITOR Kimbrough) No history of previous surgery - Family History Family History: Family History (Last Reviewed 01/10/18 @ 18:45 by VITOR Kimbrough) Mother Breast cancer Father Bladder cancer - Tobacco History Second Hand Smoke Exposure: No Smoking Status: Never smoker Tobacco Type: Smokeless Tobacco - Alcohol History How Often Do You Have a Drink Containing Alcohol: 4 or more times a week - Substance Use History Substance History: No History of Abuse - Travel History History of Recent Travel: No Recent Travel Out of the Country Within the Last 8 Weeks: No - Immunization History Tetanus Immunization: >5 Years Medications and Allergies Active Medications: Active Medications Acetaminophen (Tylenol) 650 mg PO Q6H PRN PRN Reason: prn pain or temp >100.4 Hydrocodone Bitart/Acetaminophen (Salix 10/325) 1 tab PO Q4H PRN PRN Reason: pain 1-10 Last Admin: 01/10/18 22:41 Dose: 1 tab Al Hydroxide/Mg Hydroxide (Milk Of Tony Card) 30 ml PO Q12H PRN PRN Reason: Mild Constipation Bisacodyl (Dulcolax Supp) 10 mg RECTAL DAILY PRN PRN Reason: SEVERE CONSITIPATION Chlorhexidine Gluconate (Chlorhexidine 2% Cloth) 3 pack TOPICAL DAILY@0400 MONICO Stop: 01/16/18 03:59 Chlorhexidine Gluconate (Chlorhexidine 2% Cloth) 3 pack TOPICAL DAILY@0400 PRN PRN Reason: Extra cloth needed Stop: 01/16/18 03:59 Hydralazine HCl (Apresoline Inj) 10 mg IV.PUSH Q30M PRN PRN Reason: SBP >160 Sodium Chloride (Ns Inj) 1,000 mls @ 70 mls/hr IV.CONT .[id number] MONICO Last Admin: 01/10/18 22:15 Dose: 70 mls/hr Magnesium Sulfate 4 gm/ Sodium (Chloride) 100 mls @ 50 mls/hr IV.SIG UNSCH PRN PRN Reason: For Magnesium 0.9 - 1.1 mg/dL Magnesium Sulfate 2 gm/ Sodium (Chloride) 100 mls @ 50 mls/hr IV.SIG UNSCH PRN PRN Reason: For Magnesium 1.2 - 1.6 mg/dL Potassium Chloride (Kcl 40 Meq Premix Inj) 40 meq in 100 mls @ 25 mls/hr IV.SIG Q2H PRN PRN Reason: For Potassium 2.8 - 3.2 mEq/L Potassium Chloride (Kcl 20 Meq Premix Inj) 20 meq in 100 mls @ 50 mls/hr IV.SIG Q2H PRN PRN Reason: For Potassium 3.3 - 3.5 mEq/L Potassium Chloride (Kcl 40 Meq Premix Inj) 40 meq in 100 mls @ 25 mls/hr IV.SIG UNSCH PRN PRN Reason: For Potassium 3.3 - 3.5 mEq/L Potassium Phosphate 30 mmol/ (Sodium Chloride) 260 mls @ 42 mls/hr IV.SIG UNSCH PRN PRN Reason: SEE LABEL COMMENTS Sodium Phosphate 30 mmol/ (Sodium Chloride) 260 mls @ 42 mls/hr IV.SIG UNSCH PRN PRN Reason: For Phosphorus < 2.5 mg/dL Potassium Chloride (Kcl 20 Meq Premix Inj) 20 meq in 100 mls @ 50 mls/hr IV.SIG Q2H PRN PRN Reason: For Potassium 2.8 - 3.2 mEq/L Lactulose (Lactulose Liq) 30 ml PO DAILY PRN PRN Reason: SEVERE CONSITIPATION Magnesium Oxide (Mag-Ox) 800 mg PO UNSCH PRN PRN Reason: For Magnesium 1.2 - 1.6 mg/dL Morphine Sulfate (Morphine Inj) 2 mg IV.PUSH Q3H PRN PRN Reason: BREAKTHROUGH PAIN Ondansetron HCl (Zofran Inj) 4 mg IV.PUSH Q6H PRN PRN Reason: NAUSEA OR VOMITING Last Admin: 01/10/18 21:59 Dose: 4 mg Pantoprazole Sodium (Protonix) 40 mg PO DAILY MONICO Potassium Bicarb/Potassium Chloride (K-Lyte Cl Eff) 50 meq PO UNSCH PRN PRN Reason: For Potassium 3.3 - 3.5 mEq/L Potassium Phosphate (K-Phos Original) 2,000 mg PO Q4H PRN PRN Reason: Phosphorus Less Than 2.5 mg/dL Potassium Phosphate (K-Phos Original) 2,000 mg PO UNSCH PRN PRN Reason: SEE LABEL COMMENTS Senna/Docusate Sodium (Candice-Colace) 1 tab PO BID MONICO Sennosides (Senokot) 17.2 mg PO Q12H PRN PRN Reason: Moderate Constipation Sodium Chloride (Ns Flush) 2 ml IV.FLUSH PRN PRN PRN Reason: FLUSH AFTER USING IV ACCESS Sodium Chloride (Ns Flush) 2 ml IV.FLUSH BID MONICO Sodium Chloride (Ns Flush) 2 ml IV.FLUSH PRN PRN PRN Reason: FLUSH AFTER USING IV ACCESS Allergies Allergy/AdvReac Type Severity Reaction Status Date / Time buspirone Allergy Severe Edema Verified 01/10/18 17:14 carvedilol Allergy Severe Edema Verified 01/10/18 17:14 Home Medications Medication Instructions Recorded Confirmed Type amitriptyline 175 mg PO DAILY 11/29/17 01/10/18 History gabapentin 800 mg PO BID 11/29/17 01/10/18 History hydrocodone-acetaminophen [Salix] 1 tab PO Q6H PRN 11/29/17 01/10/18 History lorazepam [Ativan] 1 mg PO DAILY 11/29/17 01/10/18 History omeprazole magnesium [Prilosec OTC] 40 mg PO DAILY 11/29/17 01/10/18 History budesonide-formoterol [Symbicort] 2 puff INHALATION BID 01/03/18 01/10/18 History cyclobenzaprine 10 mg PO TID PRN 01/03/18 01/10/18 History prednisone 5 mg PO DAILY 01/03/18 01/10/18 History tiotropium bromide [Spiriva 2 puff INHALATION DAILY 01/03/18 01/10/18 History Respimat] Results - Labs CBC & Chem 7: 01/10/18 17:39 01/10/18 17:39 Labs: Short CBC 01/10/18 Range/Units 17:39 WBC 7.0 (4.0-11.0) th/mm3 Hgb 14.7 (13.0-17.0) gm/dL Hct 42.2 (39.0-51.0) % Plt Count 256 (150-450) th/mm3 BMP 01/10/18 17:39 Sodium 136 Potassium 3.4 L Chloride 98 Carbon Dioxide 27.6 BUN 9 Creatinine 0.83 Calcium 8.4 L - Imaging Impressions Head CT 01/10/18 17:30 CONCLUSION: 1. Small amount of subdural and subarachnoid hemorrhage anteriorly predominantly in the left frontal region associated with a small hemorrhagic contusions in the medial left frontal lobe. No significant mass effect or midline shift this time. 2. Remote lacunar infarct left basal ganglia. . Cervical Spine CT 01/10/18 17:31 CONCLUSION: 1. No acute findings. Mild degenerative change. Face CT 01/10/18 17:36 CONCLUSION: 1. Nondisplaced fracture of the right temporal bone with some hemorrhage in the aerated portions of the right temporal bone. Trace pneumocephalus on the right. 2. There is also trace subdural and subarachnoid hemorrhage anteriorly predominantly of the left frontal region with a small hemorrhagic contusion of the left frontal lobe. There is also trace subarachnoid and subdural hemorrhage in the right temporal region. No significant mass effect or shift. Exam Vital signs: Vital Signs 01/10/18 17:00 01/10/18 18:30 01/10/18 21:33 Temperature 98.3 F Pulse Rate 100 H 92 H 98 H Respiratory Rate 20 18 18 Blood Pressure 152/84 H 155/87 H 150/83 H Pulse Oximetry 97 97 01/10/18 22:17 01/10/18 22:41 Temperature Pulse Rate Respiratory Rate 15 20 Blood Pressure Pulse Oximetry Intake & Output 01/10/18 01/10/18 01/11/18 06:59 18:59 06:59 Intake Total 1000 / 1000 Balance 1000 / 1000 Weight 120.202 kg Intake: IV 1000 / 1000 NS Inj 1,000 ML @ Wide Open IV. 1000 / 1000 SIG BOLUS ONE Rx#:[id number] Narrative: GENERAL: Well-nourished, well-developed patient who is sitting up in ISC bed, lights turned off. SKIN: Warm and dry, well perfused. Scalp laceration posterior occiput with ana intact, hemostasis obtained. HEAD: . Normocephalic. EYES: Pupils equal and round, 3 mm and reactive to 2 mm bilaterally. Extraocular movements intact. ENT: No nasal bleeding or discharge currently. NECK: Trachea midline. No JVD. CARDIOVASCULAR: Regular rate and rhythm, sinus rhythm on the monitor. No murmurs rubs or gallops. RESPIRATORY: Breathing comfortably on room air with no accessory muscle use. Clear to auscultation. Breath sounds equal bilaterally. GASTROINTESTINAL: Abdomen protuberant, soft, non-tender, nondistended. Bowel sounds present. MUSCULOSKELETAL: Extremities without clubbing, cyanosis, or edema. No obvious deformities. NEUROLOGICAL: Awake and alert. Cranial nerves II through XII intact. Strength 5 out of 5 in all extremities. Sensation intact. No pronator drift. Normal speech Caprini VTE Risk Assessment Caprini VTE Risk Assessment: Moderate/High Risk (score >= 2) VTE Pharmacological Exception Reason: Intracranial lesions Caprini Risk Assessment Model: Point Value = 1 Point Value = 2 Point Value = 3 Point Value = 5 Age 41-60 Minor surgery BMI > 25 kg/m2 Swollen legs Varicose veins or History of unexplained or recurrent spontaneous Oral contraceptives or hormone replacement Sepsis (< 1 month) Serious lung disease, including pneumonia (< 1 month) Abnormal pulmonary function Acute myocardial infarction Congestive heart failure (< 1 month) History of inflammatory bowel disease Medical patient at bed rest Age 61-74 Arthroscopic surgery Major open surgery (> 45 min) Laparoscopic surgery (> 45 min) Malignancy Confined to bed (> 72 hours) Immobilizing plaster cast Central venous access Age >= 75 History of VTE Family history of VTE Factor V Leiden Prothrombin [id number] Lupus anticoagulant Anticardiolipin antibodies Elevated serum homocysteine Heparin-induced thrombocytopenia Other congenital or acquired thrombophilia Stroke (< 1 month) Elective arthroplasty Hip, pelvis, or leg fracture Acute spinal cord injury (< 1 month) Prophylaxis Regimen: Total Risk Factor Score Risk Level Prophylaxis Regimen 0-1 Low Early ambulation 2 Moderate Order ONE of the following: *Sequential Compression Device (SCD) *Heparin 5000 units SQ BID 3-4 Higher Order ONE of the following medications: *Heparin 5000 units SQ TID *Enoxaparin/Lovenox 40 mg SQ daily (WT < 150 kg, CrCl > 30 mL/min) *Enoxaparin/Lovenox 30 mg SQ daily (WT < 150 kg, CrCl > 10-29 mL/min) *Enoxaparin/Lovenox 30 mg SQ BID (WT < 150 kg, CrCl > 30 mL/min) AND/OR *Sequential Compression Device (SCD) 5 or more Highest Order ONE of the following medications: *Heparin 5000 units SQ TID (Preferred with Epidurals) *Enoxaparin/Lovenox 40 mg SQ daily (WT < 150 kg, CrCl > 30 mL/min) *Enoxaparin/Lovenox 30 mg SQ daily (WT < 150 kg, CrCl > 10-29 mL/min) *Enoxaparin/Lovenox 30 mg SQ BID (WT < 150 kg, CrCl > 30 mL/min) AND *Sequential Compression Device (SCD) Assessment and Plan - Problem List (1) Fall Code(s): W19.XXXA - Unspecified fall, initial encounter Status: Acute (2) Temporal skull fracture Code(s): S02.19XA - Other fracture of base of skull, initial encounter for closed fracture Status: Acute (3) Frontal lobe contusion Code(s): S06.339A - Contusion and laceration of cerebrum, unspecified, with loss of consciousness of unspecified duration, initial encounter Status: Acute (4) Contusion of right temporal lobe Code(s): S06.319A - Contusion and laceration of right cerebrum with loss of consciousness of unspecified duration, initial encounter Status: Acute (5) Anxiety Code(s): F41.9 - Anxiety disorder, unspecified Status: Chronic (6) Chronic pain Code(s): G89.29 - Other chronic pain Status: Chronic (7) Brachial plexus injury, left Code(s): S14.3XXA - Injury of brachial plexus, initial encounter Status: Chronic (8) Hypokalemia Code(s): E87.6 - Hypokalemia Status: Chronic (9) Hypertension Code(s): I10 - Essential (primary) hypertension Status: Chronic (10) Obesity (BMI 30.0-34.9) Code(s): E66.9 - Obesity, unspecified Status: Chronic (11) Chronic GERD Code(s): K21.9 - Gastro-esophageal reflux disease without esophagitis Status: Acute (12) Bronchitis Code(s): J40 - Bronchitis, not specified as acute or chronic Status: Chronic - Assessment and Plan Plan: NEURO: Left frontal contusion Right temporal contusion and small subdural Right temporal bone fracture with pneumocephalus Fall Scalp laceration - repaired in ED 01/10. Remove ana in 7 days. [facility] for neuro and BP monitoring. f/u CT brain in am. Neurosurgery consultation. PT consult Chronic pain related to left brachial plexus injury (1994) and chronic low back pain Continue gabapentin 800 mg p.o. twice daily Continue amitriptyline 175 mg p.o. daily Continue Flexeril 10 mg p.o. 3 times daily Continue Lortab 10/325 1 tab p.o. every 4 hours as needed for pain. Hold ibuprofen for now in view of hemorrhagic contusion. Morphine 2 mg IV every 3 hours as needed for breakthrough pain. Anxiety Continue Ativan 1 mg p.o. daily RESP: Chronic bronchitis On room air Continue Spiriva inhaled daily. Continue his own Symbicort 2 puffs inhaled twice daily CV: Hypertension Hydralazine as needed for systolic blood pressure greater than 160. Nicardipine if needed. Reported intolerance to carvedilol in the past. Continue Norvasc 10 mg p.o. daily and Aldactone 25 mg p.o. daily. GI: Obesity Nausea GERD Zofran as needed Bedside swallow evaluation. Clear liquids. Continue PPI FEN/RENAL: Hypokalemia Replace potassium orally per ICU electrolyte replacement protocol. Voiding ID: Monitor for signs and symptoms of infection HEME: He was not on antiplatelet or anticoagulant therapy. ENDO: Euglycemic Prednisone 5 mg daily is listed on his MAR but patient states he is not chronically on prednisone, has not been taking it prior to admission, and takes it "only when he has hand or feet swelling". PROPH: SCDs for DVT prophylaxis. Avoid pharmacologic DVT prophylaxis due to hemorrhagic contusions. Protonix 40 mg p.o. daily for stress ulcer prophylaxis and history of GERD ACCESS: Peripheral IV Full code Level 3 H&P (3) Frontal lobe contusion Qualifiers: Laterality: left (9) Hypertension Qualifiers: Hypertension type: unspecified Qualified Code(s): I10 - Essential (primary) hypertension
[2018-01-10] MEDS ORDERED: niCARdipine Inj 25 MG in Sodium Chlor 0.9% Inj 250 ML IV.CONT PRN (23:49)
[2018-01-11] MEDS ORDERED: Haloperidol Inj 5 MG/ML Ampul IV.PUSH PRN (01:21)
[2018-01-11] MEDS ORDERED: LORazepam 1 MG Tablet PO PRN (01:21)
[2018-01-11] MEDS: Thiamine Inj 100 MG in Sodium Chlor 0.9% Inj 100 ML IV.SIG SCH ×2 (03:19→14:21)
[2018-01-11] MEDS: Chlorhexidine Gluconate 2% 1 Pack (2 Cloths) TOPICAL SCH (03:24)
[2018-01-11] MEDS ORDERED: Chlorhexidine Gluconate 2% 1 Pack (2 Cloths) TOPICAL PRN (04:00)
--- NOTE | 2018-01-11 05:02 | CT ---
EXAM DATE: 01/11/2018 4:11 AM EDT AGE/SEX: 57 years / Male INDICATIONS: Trauma, fall. Follow up hemorrhages. CLINICAL DATA: This is the patient's subsequent encounter. Patient reports that signs and symptoms h ave been present for 2 days and indicates a pain score of 8/10. MEDICAL/SURGICAL HISTORY: Hypertension. None. RADIATION DOSE: 44.10 CTDI (mGy) COMPARISON: [facility] [place], CT HEAD W/O CONTRAST, 01/10/2018. . TECHNIQUE: CT of the head without contrast. Using automated exposure control and adjustment of the mA and/or kV according to patient size, radiation dose was kept as low as reasonably achievable to ob tain optimal diagnostic quality images. DICOM format image data is available electronically for revi ew and comparison. FINDINGS: Cerebrum: Persistent left frontal orbital hemorrhages, subarachnoid hemorrhage along the anterior le ft frontal region, stable in appearance to prior. There is good irwin-white matter differentiation. Th e ventricles are normal in size. Lacunar infarct in the left basal ganglia. No new hemorrhages seen. Posterior Fossa: The cerebellum and brainstem are intact. The 4th ventricle is midline. The cerebe llopontine angle is unremarkable. Extracranial: The visualized portion of the orbits is intact. Persistent opacification of multiple b ilateral ethmoids. Skull: The calvaria is intact. No evidence of skull fracture. Multiple metallic ana in the righ t occipital scalp. CONCLUSION: 1. No acute findings. Persistent left frontal contusion and subarachnoid hemorrhage. 2. Stable opacified ethmoids. . Electronically signed by: Jewel Machado MD 01/11/2018 5:01 AM EDT
[2018-01-11 06:22] LABS: Baso % (Auto) 0.3 % (0.0-2.0); Eos % (Auto) 0.5 % (0.0-4.0); Hematocrit 42.3 % (39.0-51.0); Hemoglobin 14.3 gm/dL (13.0-17.0); Lymph # (Auto) 0.9 th/mm3 (1.0-4.8); Lymph % (Auto) 11.5 % (9.0-44.0); Mean Corpuscular HGB Conc 33.8 % (32.0-36.0); Mean Corpuscular Hemoglobin 31.4 pg (27.0-34.0); Mean Corpuscular Volume 92.7 fL (80.0-100.0); Mean Platelet Volume 7.4 fL (7.0-11.0); Mono # (Auto) 0.5 th/mm3 (0.0-0.9); Mono % (Auto) 5.9 % (0.0-8.0); Neut # (Auto) 6.3 th/mm3 (1.8-7.7); Neut % (Auto) 81.8 % (16.0-70.0); Platelet Count 253 th/mm3 (150-450); Red Blood Count 4.57 mil/mm3 (4.50-5.90); Red Cell Distribution Width 13.3 % (11.6-17.2); White Blood Count 7.7 th/mm3 (4.0-11.0)
[2018-01-11 06:49] LABS: Anion Gap 10 meq/L (5-15); Blood Urea Nitrogen 7 mg/dL (7-18); Calcium 8.7 mg/dL (8.5-10.1); Carbon Dioxide 26.4 meq/L (21.0-32.0); Chloride 100 meq/L (98-107); Glomerular Filtration Rate Greater Than 89 mL/min (>89); Glucose,Random 102 mg/dL (74-106); Potassium 3.8 meq/L (3.5-5.1); Sodium 136 meq/L (136-145)
[2018-01-11] MEDS ORDERED: predniSONE 5 MG Tablet PO SCH (09:00)
[2018-01-11] MEDS ORDERED: LORazepam 1 MG Tablet PO SCH (09:00)
[2018-01-11] MEDS: Gabapentin 400 MG Capsule PO SCH ×2 (10:05→21:14)
[2018-01-11] MEDS: Spironolactone 25 MG Tablet PO SCH (10:06)
[2018-01-11] MEDS: amLODIPine 10 MG Tablet PO SCH (10:06)
[2018-01-11] MEDS: Amitriptyline 100 MG Tablet PO SCH ×2 (10:14→19:51)
[2018-01-11] MEDS: Senna/Docusate Sodium 8.6/50 MG Tablet PO SCH ×2 (10:14→21:15)
--- NOTE | 2018-01-11 10:22 | P.CONNS ---
History of Present Illness Service: Neurosurgery Consult date: 01/11/18 Requesting Physician: Jaycee Jeter ([employer]) Reason for Consult: Traumatic brain injury Primary Care Provider: David Rahman MD Chief Complaint: Fall with skull fracture, hemorrhagic contusions, subdural History of Present Illness: 57-year-old gentleman who was brought to [facility] emergency room trip and fall at home without any loss of consciousness. Main complaint of headache and nausea with some neck and back discomfort but no numbness or paresthesias in the upper lower extremities. CT scan of the head obtained reveals left frontal and right temporal lobe contusions along with a small left frontal polar subarachnoid/subdural hemorrhage with a right temporal skull fracture. He was admitted to the surgical intensive care unit overnight and follow-up CT scan of the head this morning is stable. Review of Systems Constitutional: Reports headache(s), Denies anorexia, Denies body ache(s), Denies chills, Denies daytime sleepiness, Denies excessive sweating, Denies fatigue, Denies fever(s), Denies increased appetite, Denies lack of energy, Denies malaise, Denies night sweats, Denies weakness, Denies weight gain, Denies weight loss, Denies other Eyes: Denies blind spots, Denies blurry vision, Denies bulging eyes, Denies change in vision, Denies double vision, Denies discharge, Denies dry eyes, Denies floaters, Denies irritation, Denies itchy eyes, Denies loss of vision, Denies pain, Denies requires corrective lenses, Denies sensitivity to light, Denies other Ears, Nose, Mouth, and Throat: Denies abnormal hearing, Denies bleeding gums, Denies bad breath, Denies change in voice, Denies dental pain, Denies difficulty swallowing, Denies dizziness, Denies dry mouth, Denies ear discharge , Denies ear pain, Denies facial pain, Denies headache(s), Denies hearing loss, Denies hoarseness, Denies lip swelling, Denies nosebleed, Denies mouth lesions, Denies mouth pain, Denies nasal congestion, Denies nasal discharge, Denies nasal obstruction, Denies nasal trauma, Denies neck lump, Denies neck pain, Denies nose pain, Denies pain with swallowing, Denies poor balance, Denies post nasal drip, Denies ringing in the ears, Denies sinus pain, Denies sinus pressure , Denies sore throat, Denies throat swelling, Denies tongue swelling, Denies other Cardiovascular: Denies chest pain, Denies chest pain at rest, Denies chest pain with activity, Denies excessive sweating, Denies fainting, Denies fast heart rate, Denies foot swelling, Denies generalized swelling, Denies irregular heart rhythm, Denies leg pain with activity, Denies leg sores, Denies leg swelling, Denies lightheadedness, Denies radiating jaw, neck or arm pain, Denies rapid, pounding, or irregular heartbeat, Denies shortness of breath, Denies shortness of breath with activity, Denies shortness of breath when lying down, Denies shortness of breath causing sudden awakening, Denies slow heart rate, Denies other Respiratory: Denies change in phlegm color, Denies chest congestion, Denies cough, Denies coughing up blood, Denies excessive phlegm production, Denies pain on inspiration, Denies pain with cough, Denies shortness of breath, Denies shortness of breath with activity, Denies snoring, Denies stridor, Denies wheezing, Denies other Gastrointestinal: Reports nausea, Reports vomiting, Denies abdominal pain, Denies belching, Denies black, tarry stools, Denies bloating, Denies bright, red blood in stools, Denies change in bowel habits, Denies constant urge to pass stool, Denies change in stools, Denies coffee ground vomit, Denies constipation, Denies cramping, Denies difficulty swallowing, Denies excessive passing of gas, Denies feeling full early, Denies heartburn, Denies incontinent of stools, Denies loose stools, Denies pain with swallowing, Denies vomiting blood, Denies other Genitourinary: Denies blood in semen, Denies blood in urine, Denies decreased urination, Denies difficulty urinating, Denies difficulty with ejaculations, Denies erectile dysfunction, Denies genital lesions, Denies genital pain, Denies painful urination, Denies side pain, Denies frequent nighttime urination , Denies painful ejaculations, Denies penile discharge, Denies scrotal swelling , Denies testicle lump, Denies testicle pain, Denies urinary frequency, Denies urinary hesitancy, Denies urinary incontinence, Denies urinary urgency, Denies other Musculoskeletal: Reports back pain, Reports neck pain, Denies abnormal walking, Denies body aches, Denies decreased muscle mass, Denies deformity, Denies joint pain, Denies joint swelling, Denies limited joint movement, Denies loss of height, Denies muscle cramps, Denies muscle weakness, Denies numbness, Denies radiating pain into limb, Denies stiffness, Denies tingling, Denies other Skin/Breast: Denies acne, Denies bleeding lesions, Denies boil, Denies breast swelling, Denies breast skin changes, Denies breast pain, Denies breast lump, Denies change in breast shape, Denies change in hair, Denies change in skin color, Denies changing lesions, Denies dry skin, Denies excessive hair growth, Denies hair loss, Denies itching, Denies lesions, Denies nail changes, Denies new lesions, Denies nipple discharge, Denies non-healing lesions, Denies redness , Denies sensitivity to light, Denies rash, Denies skin pain, Denies skin ulcer , Denies sores, Denies stretch schulz, Denies unusual bruising, Denies wounds, Denies yellowing of the skin, Denies other Neurologic: Reports headache(s), Denies abnormal hearing, Denies abnormal movements, Denies abnormal speech, Denies abnormal walking, Denies behavioral changes, Denies burning sensations, Denies confusion, Denies dizziness, Denies fainting, Denies frequent falls, Denies lack of coordination, Denies localized weakness, Denies loss of vision, Denies memory loss, Denies numbness, Denies other visual disturbances, Denies radiating pain, Denies restless legs, Denies convulsions, Denies seizure-like activity, Denies sensory deficit, Denies tingling, Denies tingling/numbness/burning sensations, Denies tremor(s), Denies unsteadiness, Denies weakness, Denies other Psychiatric: Denies abnormal sleep pattern, Denies anxiety, Denies behavioral changes, Denies change in appetite, Denies change in sex drive, Denies confusion , Denies depression, Denies difficulty concentrating, Denies hearing things others do not hear, Denies hopelessness, Denies irritability, Denies lack of enjoyment, Denies memory loss, Denies mood swings, Denies panic attacks, Denies paranoia, Denies seeing things others do not see, Denies sensing things others do not sense, Denies tactile hallucinations, Denies thoughts of hurting/killing others, Denies thoughts of hurting/killing yourself, Denies other Endocrine: Denies cold intolerance, Denies excessive sweating, Denies flushing, Denies heat intolerance, Denies increased hunger, Denies increased thirst, Denies increased urination, Denies rapid, pounding, or irregular heartbeat, Denies other Hematologic/Lymphatic: Denies easy bleeding, Denies easy bruising, Denies enlarged lymph nodes, Denies other Allergic/Immunologic: Denies GI upset with certain foods, Denies hives, Denies itchy eyes, Denies lip swelling, Denies seasonal runny nose, Denies throat swelling, Denies tongue swelling, Denies wheezing, Denies other PMFSH - History History Provided By: Patient - Medical History Medical History: Medical History (Last Reviewed 01/11/18 @ 10:18 by Zelalem Reyes MD) GERD (gastroesophageal reflux disease) Anxiety Brachial plexus disorders Chronic back pain Chronic bronchitis DDD (degenerative disc disease) Hypertension - Surgical History Surgical History: Surgical History (Last Reviewed 01/11/18 @ 10:19 by Zelalem Reyes MD) No history of previous surgery - Family History Family History: Family History (Last Reviewed 01/11/18 @ 10:19 by Zelalem Reyes MD) Mother Breast cancer Father Bladder cancer - Tobacco History Second Hand Smoke Exposure: Yes Smoking Status: Never smoker Tobacco Type: Smokeless Tobacco - Alcohol History How Often Do You Have a Drink Containing Alcohol: 4 or more times a week - Substance Use History Substance History: No History of Abuse - Travel History History of Recent Travel: No Recent Travel Out of the Country Within the Last 8 Weeks: No - Immunization History Tetanus Immunization: <5 Years Tetanus Immunization Year if Known: 2017 Hx Influenza Vaccine This Season: No Medications and Allergies Active Medications: Active Medications Acetaminophen (Tylenol) 650 mg PO Q6H PRN PRN Reason: prn pain or temp >100.4 Hydrocodone Bitart/Acetaminophen ([place] 10/325) 1 tab PO Q4H PRN PRN Reason: pain 1-10 Last Admin: 01/11/18 02:49 Dose: 1 tab Al Hydroxide/Mg Hydroxide (Milk Of Tony Card) 30 ml PO Q12H PRN PRN Reason: Mild Constipation Amitriptyline HCl (Elavil) 100 mg PO DAILY [facility] Amitriptyline HCl (Elavil) 75 mg PO DAILY [facility] Amlodipine Besylate (Norvasc) 10 mg PO DAILY [facility] Bisacodyl (Dulcolax Supp) 10 mg RECTAL DAILY PRN PRN Reason: SEVERE CONSITIPATION Budesonide/Formoterol Fumarate (Symbicort 160/4.5 Mcg Inh) 2 puff INH BID [facility] Chlorhexidine Gluconate (Chlorhexidine 2% Cloth) 3 pack TOPICAL DAILY@0400 [facility] Stop: 01/16/18 03:59 Last Admin: 01/11/18 03:24 Dose: 3 pack Chlorhexidine Gluconate (Chlorhexidine 2% Cloth) 3 pack TOPICAL DAILY@0400 PRN PRN Reason: Extra cloth needed Stop: 01/16/18 03:59 Cyclobenzaprine HCl (Flexeril) 10 mg PO TID PRN PRN Reason: Muscle Spasm Flumazenil (Romazecon Inj) 0.2 mg IV.PUSH Q1M PRN PRN Reason: OVERSEDATION Gabapentin (Neurontin) 800 mg PO BID [facility] Haloperidol Lactate (Haldol Inj) 1 mg IV.PUSH Q15M PRN PRN Reason: for severe agitation Hydralazine HCl (Apresoline Inj) 10 mg IV.PUSH Q30M PRN PRN Reason: SBP >160 Sodium Chloride (Ns Inj) 1,000 mls @ 70 mls/hr IV.CONT .[id number] [facility] Last Admin: 01/10/18 22:15 Dose: 70 mls/hr Magnesium Sulfate 4 gm/ Sodium (Chloride) 100 mls @ 50 mls/hr IV.SIG UNSCH PRN PRN Reason: For Magnesium 0.9 - 1.1 mg/dL Magnesium Sulfate 2 gm/ Sodium (Chloride) 100 mls @ 50 mls/hr IV.SIG UNSCH PRN PRN Reason: For Magnesium 1.2 - 1.6 mg/dL Potassium Chloride (Kcl 40 Meq Premix Inj) 40 meq in 100 mls @ 25 mls/hr IV.SIG Q2H PRN PRN Reason: For Potassium 2.8 - 3.2 mEq/L Potassium Chloride (Kcl 20 Meq Premix Inj) 20 meq in 100 mls @ 50 mls/hr IV.SIG Q2H PRN PRN Reason: For Potassium 3.3 - 3.5 mEq/L Potassium Chloride (Kcl 40 Meq Premix Inj) 40 meq in 100 mls @ 25 mls/hr IV.SIG UNSCH PRN PRN Reason: For Potassium 3.3 - 3.5 mEq/L Potassium Phosphate 30 mmol/ (Sodium Chloride) 260 mls @ 42 mls/hr IV.SIG UNSCH PRN PRN Reason: SEE LABEL COMMENTS Sodium Phosphate 30 mmol/ (Sodium Chloride) 260 mls @ 42 mls/hr IV.SIG UNSCH PRN PRN Reason: For Phosphorus < 2.5 mg/dL Potassium Chloride (Kcl 20 Meq Premix Inj) 20 meq in 100 mls @ 50 mls/hr IV.SIG Q2H PRN PRN Reason: For Potassium 2.8 - 3.2 mEq/L Nicardipine HCl 25 mg/ Sodium (Chloride) 260 mls @ 52 mls/hr IV.CONT TITRATE PRN; Protocol PRN Reason: Per Protocol Thiamine HCl 100 mg/ Sodium (Chloride) 101 mls @ 100 mls/hr IV.SIG DAILY [facility] Stop: 01/14/18 10:01 Last Infusion: 01/11/18 04:20 Dose: Infused Lactulose (Lactulose Liq) 30 ml PO DAILY PRN PRN Reason: SEVERE CONSITIPATION Lorazepam (Ativan) 1 mg PO DAILY [facility] Lorazepam (Ativan) 1 mg PO Q4H PRN PRN Reason: for CIWA 8-10 Lorazepam (Ativan Inj) 2 mg IV.PUSH Q2H PRN PRN Reason: for CIWA 11-14 Lorazepam (Ativan Inj) 2 mg IV.PUSH Q1H PRN PRN Reason: for CIWA 15-20 Lorazepam (Ativan Inj) 2 mg IV.PUSH Q15M PRN PRN Reason: for CIWA > 20 Lorazepam (Ativan Inj) 1 mg IV.PUSH Q4H PRN PRN Reason: for CIWA 8-10 Lorazepam (Ativan) 2 mg PO Q2H PRN PRN Reason: for CIWA 11-14 Magnesium Oxide (Mag-Ox) 800 mg PO UNSCH PRN PRN Reason: For Magnesium 1.2 - 1.6 mg/dL Morphine Sulfate (Morphine Inj) 2 mg IV.PUSH Q3H PRN PRN Reason: BREAKTHROUGH PAIN Multivitamins (Theragran) 1 tab PO DAILY [facility] Ondansetron HCl (Zofran Inj) 4 mg IV.PUSH Q6H PRN PRN Reason: NAUSEA OR VOMITING Last Admin: 01/10/18 21:59 Dose: 4 mg Pantoprazole Sodium (Protonix) 40 mg PO DAILY [facility] Tiotropium [place] [ Spiriva Respimat] 2 Puff 0 each INH DAILY [facility] Potassium Bicarb/Potassium Chloride (K-Lyte Cl Eff) 50 meq PO UNSCH PRN PRN Reason: For Potassium 3.3 - 3.5 mEq/L Potassium Phosphate (K-Phos Original) 2,000 mg PO Q4H PRN PRN Reason: Phosphorus Less Than 2.5 mg/dL Potassium Phosphate (K-Phos Original) 2,000 mg PO UNSCH PRN PRN Reason: SEE LABEL COMMENTS Promethazine HCl (Phenergan Inj) 25 mg IM Q6H PRN PRN Reason: nausea Last Admin: 01/11/18 01:57 Dose: 25 mg Senna/Docusate Sodium (Candice-Colace) 1 tab PO BID [facility] Sennosides (Senokot) 17.2 mg PO Q12H PRN PRN Reason: Moderate Constipation Sodium Chloride (Ns Flush) 2 ml IV.FLUSH BID [facility] Sodium Chloride (Ns Flush) 2 ml IV.FLUSH PRN PRN PRN Reason: FLUSH AFTER USING IV ACCESS Spironolactone (Aldactone) 25 mg PO DAILY [facility] Allergies Allergy/AdvReac Type Severity Reaction Status Date / Time buspirone Allergy Severe Edema Verified 01/10/18 17:14 carvedilol Allergy Severe Edema Verified 01/10/18 17:14 Home Medications Medication Instructions Recorded Confirmed Type amitriptyline 175 mg PO DAILY 11/29/17 01/10/18 History gabapentin 800 mg PO BID 11/29/17 01/10/18 History hydrocodone-acetaminophen [[place]] 1 tab PO Q6H PRN 11/29/17 01/10/18 History lorazepam [Ativan] 1 mg PO DAILY 11/29/17 01/10/18 History omeprazole magnesium [Prilosec OTC] 40 mg PO DAILY 11/29/17 01/10/18 History budesonide-formoterol [Symbicort] 2 puff INHALATION BID 01/03/18 01/10/18 History cyclobenzaprine 10 mg PO TID PRN 01/03/18 01/10/18 History prednisone 5 mg PO DAILY 01/03/18 01/10/18 History tiotropium bromide [Spiriva 2 puff INHALATION DAILY 01/03/18 01/10/18 History Respimat] Exam Vital signs: Vital Signs 01/10/18 17:00 01/10/18 18:30 01/10/18 21:33 Temperature 98.3 F Pulse Rate 100 H 92 H 98 H Respiratory Rate 20 18 18 Blood Pressure 152/84 H 155/87 H 150/83 H Pulse Oximetry 97 97 01/10/18 22:00 01/10/18 22:17 01/10/18 22:41 Temperature 98.1 F Pulse Rate 120 H Respiratory Rate 16 15 20 Blood Pressure 142/95 H Pulse Oximetry 99 01/10/18 23:00 01/10/18 23:38 01/11/18 00:00 Temperature Pulse Rate 105 H 103 H Respiratory Rate 25 H 19 16 Blood Pressure 166/101 H 165/99 H Pulse Oximetry 96 92 L 01/11/18 00:20 01/11/18 01:00 01/11/18 02:00 Temperature Pulse Rate 103 H 108 H 101 H Respiratory Rate 16 19 21 Blood Pressure 165/99 H 157/94 H 155/93 H Pulse Oximetry 92 L 94 L 93 L 01/11/18 02:49 01/11/18 03:00 01/11/18 03:20 Temperature Pulse Rate 103 H Respiratory Rate 21 18 18 Blood Pressure 152/91 H Pulse Oximetry 92 L 01/11/18 04:00 01/11/18 05:00 01/11/18 06:00 Temperature 99.3 F Pulse Rate 103 H 96 H 93 H Respiratory Rate 18 19 18 Blood Pressure 152/91 H 159/89 H 146/90 H Pulse Oximetry 92 L 94 L 93 L Intake & Output 01/10/18 01/11/18 01/11/18 18:59 06:59 18:59 Intake Total 1151 / 1151 Output Total 1999 Balance -849 / -849 Weight 120.202 kg 114.1 kg Intake: IV 1101 / 1101 NS Inj 1,000 ML @ Wide Open IV. 1000 / 1000 SIG BOLUS ONE Rx#:[id number] Thiamine Inj 100 MG In NS Inj 101 / 101 100 ML @ 100 mls/hr IV.SIG DAILY [facility] Rx#:[id number] Oral 50 / 50 Output: Urine 1999 Other: # Voids 3 Date of Last Bowel Movement 01/10/18 Weight On Admission 115 kg - Constitutional no acute distress - Routine HEENT Exam Head: Present: abrasion, laceration, scalp tenderness Eye: Present: EOMI, PERRL ENT: Present: mucous membranes moist, oropharynx clear, external ear normal ( Right hemotympanum) - Routine Neck Exam Present: supple, full ROM - Routine Respiratory Exam Present: CTA bilaterally - Routine Cardiovascular Exam Present: RRR, S1, S2 - Routine Abdominal Exam Present: soft, normoactive bowel sounds - Routine Extremities Exam Present: full ROM, pulses intact - Routine Skin Exam Present: intact - Routine Neurological Exam Present: oriented X3, CN II-XII intact, plantar reflex, moving all extremities, vision grossly intact, normal speech - Detailed Neurological Exam: Coma Scale Eye Opening: Spontaneous Verbal Response: Oriented Motor Response: Obey commands [place] Coma Scale Total: 15 Results - Laboratory Findings CBC and BMP: 01/11/18 05:25 01/11/18 05:25 Abnormal lab findings: Abnormal Labs 01/10/18 01/10/18 01/11/18 17:39 17:39 05:25 Neut % (Auto) 81.8 H Eos % (Auto) 4.2 H Lymph # (Auto) 0.9 L Potassium 3.4 L Calcium 8.4 L - Diagnostic Findings Additional findings: Impressions Head CT 01/10/18 17:30 CONCLUSION: 1. Small amount of subdural and subarachnoid hemorrhage anteriorly predominantly in the left frontal region associated with a small hemorrhagic contusions in the medial left frontal lobe. No significant mass effect or midline shift this time. 2. Remote lacunar infarct left basal ganglia. . Cervical Spine CT 01/10/18 17:31 CONCLUSION: 1. No acute findings. Mild degenerative change. Face CT 01/10/18 17:36 CONCLUSION: 1. Nondisplaced fracture of the right temporal bone with some hemorrhage in the aerated portions of the right temporal bone. Trace pneumocephalus on the right. 2. There is also trace subdural and subarachnoid hemorrhage anteriorly predominantly of the left frontal region with a small hemorrhagic contusion of the left frontal lobe. There is also trace subarachnoid and subdural hemorrhage in the right temporal region. No significant mass effect or shift. Head CT 01/11/18 06:00 CONCLUSION: 1. No acute findings. Persistent left frontal contusion and subarachnoid hemorrhage. 2. Stable opacified ethmoids. . Assessment and Plan - Assessment (1) Traumatic brain injury Code(s): S06.9X9A - Unspecified intracranial injury with loss of consciousness of unspecified duration, initial encounter Status: Acute (2) Temporal skull fracture Code(s): S02.19XA - Other fracture of base of skull, initial encounter for closed fracture Status: Acute (3) Frontal lobe contusion Code(s): S06.339A - Contusion and laceration of cerebrum, unspecified, with loss of consciousness of unspecified duration, initial encounter Status: Acute (4) Contusion of right temporal lobe Code(s): S06.319A - Contusion and laceration of right cerebrum with loss of consciousness of unspecified duration, initial encounter Status: Acute (5) Alcohol use Code(s): Z78.9 - Other specified health status Status: Chronic - Plan 57-year-old gentleman with a small left frontal subdural hemorrhage with frontal lobe contusion and right temporal lobe contusions along with skull fracture without mass-effect or midline shift. Follow-up scan this morning is stable. Recommend increase diet and activity status as tolerated and continued observation along with the close monitoring for alcohol withdrawal. (1) Traumatic brain injury Qualifiers: Encounter type: initial encounter Loss of consciousness presence/duration: without LOC Qualified Code(s): S06.9X0A - Unspecified intracranial injury without loss of consciousness, initial encounter (2) Temporal skull fracture Qualifiers: Encounter type: initial encounter Fracture type: closed Qualified Code(s): S02.19XA - Other fracture of base of skull, initial encounter for closed fracture (3) Frontal lobe contusion Qualifiers: Laterality: left Loss of consciousness presence/duration: without LOC (4) Contusion of right temporal lobe Qualifiers: Encounter type: initial encounter Loss of consciousness presence/duration: without LOC Qualified Code(s): S06.310A - Contusion and laceration of right cerebrum without loss of consciousness, initial encounter
--- NOTE | 2018-01-11 10:31 | P.PNCC ---
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 He says he hit the back of his head on concrete and then got up unassisted. Denies LOC or seizure. He was not feeling like himself and was nauseated with epistaxis and bleeding from his right ear so he sought medical attention. Workup included CT brain/face which demonstrated nondisplaced R temporal bone fracture with trace pneumocephalus, trace R temporal subdural and subarachnoid, and L frontal contusion. CT Cspine showed no acute findings. Scalp laceration was repaired with ana in the ED. Neurosurgery was consulted by emergency medicine provider and admission to design technology professor has been requested. He is not on antihypertensive or antiplatelet therapy. He is on antihypertensives and already took them today. 01/11: No issues overnight, patient's repeat CTH this morning stable. Patient only complains of mild right-sided headache and "dry heaving". He is asking when he can eat. Objective Vital Signs / I&O: Vital Signs 01/10/18 17:00 01/10/18 18:30 01/10/18 21:33 Temperature 98.3 F Pulse Rate 100 H 92 H 98 H Respiratory Rate 20 18 18 Blood Pressure 152/84 H 155/87 H 150/83 H Pulse Oximetry 97 97 01/10/18 22:00 01/10/18 22:17 01/10/18 22:41 Temperature 98.1 F Pulse Rate 120 H Respiratory Rate 16 15 20 Blood Pressure 142/95 H Pulse Oximetry 99 01/10/18 23:00 01/10/18 23:38 01/11/18 00:00 Temperature Pulse Rate 105 H 103 H Respiratory Rate 25 H 19 16 Blood Pressure 166/101 H 165/99 H Pulse Oximetry 96 92 L 01/11/18 00:20 01/11/18 01:00 01/11/18 02:00 Temperature Pulse Rate 103 H 108 H 101 H Respiratory Rate 16 19 21 Blood Pressure 165/99 H 157/94 H 155/93 H Pulse Oximetry 92 L 94 L 93 L 01/11/18 02:49 01/11/18 03:00 01/11/18 03:20 Temperature Pulse Rate 103 H Respiratory Rate 21 18 18 Blood Pressure 152/91 H Pulse Oximetry 92 L 01/11/18 04:00 01/11/18 05:00 01/11/18 06:00 Temperature 99.3 F Pulse Rate 103 H 96 H 93 H Respiratory Rate 18 19 18 Blood Pressure 152/91 H 159/89 H 146/90 H Pulse Oximetry 92 L 94 L 93 L Intake & Output 01/10/18 01/11/18 01/11/18 18:59 06:59 18:59 Intake Total 1151 / 1151 Output Total 1999 Balance -849 / -849 Weight 120.202 kg 114.1 kg Intake: IV 1101 / 1101 NS Inj 1,000 ML @ Wide Open IV. 1000 / 1000 SIG BOLUS ONE Rx#:[id number] Thiamine Inj 100 MG In NS Inj 101 / 101 100 ML @ 100 mls/hr IV.SIG DAILY [facility] Rx#:[id number] Oral 50 / 50 Output: Urine 1999 Other: # Voids 3 Date of Last Bowel Movement 01/10/18 Weight On Admission 115 kg Result Diagrams: 01/11/18 05:25 01/11/18 05:25 Objective Remarks: GEN: Well-appearing, no acute distress HEENT: (+) tenderness to right parietal scalp, no external signs of trauma, pupils 3 mm and reactive NECK: Trachea midline CARDIO: Regular rate and rhythm PULM: Lungs clear bilaterally ABD: Soft and non-tender in all quadrants EXT/MSK: No peripheral edema SKIN: Warm and dry NEURO: GCS 15, A&Ox3, conversational, motor strength 5/5 and sensation intact to all extremities, no pronator drift, no slurred speech or aphasia, no focal neuro deficits PSYCH: Calm, appropriate affect Assessment and Plan - Assessment and Plan Plan: NEURO: Left frontal contusion Right temporal contusion and small subdural Right temporal bone fracture with pneumocephalus Fall Scalp laceration - repaired in ED 01/10. Remove ana in 7 days. Repeat CTH this morning stable Neurosurgery consultation- case discussed with Dr. Reyes, keep in unit for at least 1 more day for serial neuro exams and close monitoring PT consult, OOB today Chronic pain related to left brachial plexus injury (1994) and chronic low back pain Continue gabapentin 800 mg p.o. twice daily Continue amitriptyline 175 mg p.o. daily Continue Flexeril 10 mg p.o. 3 times daily Continue Lortab 10/325 1 tab p.o. every 4 hours as needed for pain. Hold ibuprofen for now in view of hemorrhagic contusion. Morphine 2 mg IV every 3 hours as needed for breakthrough pain. Anxiety Continue Ativan 1 mg p.o. daily Frequent alcohol use CIWA protocol Vitamin supplementation RESP: Chronic bronchitis On room air Continue Spiriva inhaled daily. Continue Symbicort 2 puffs inhaled twice daily CV: Hypertension Hydralazine as needed for systolic blood pressure greater than 160. Nicardipine if needed. Reported intolerance to carvedilol in the past. Continue Norvasc 10 mg p.o. daily and Aldactone 25 mg p.o. daily. GI: Obesity Nausea GERD Zofran as needed Cardiac diet, d/c IVF Continue PPI FEN/RENAL: Hypokalemia Replace potassium orally per ICU electrolyte replacement protocol. Voiding ID: Monitor for signs and symptoms of infection HEME: He was not on antiplatelet or anticoagulant therapy. ENDO: Euglycemic Prednisone 5 mg daily is listed on his MAR but patient states he is not chronically on prednisone, has not been taking it prior to admission, and takes it "only when he has hand or feet swelling". PROPH: SCDs for DVT prophylaxis. Avoid pharmacologic DVT prophylaxis due to hemorrhagic contusions. Protonix 40 mg p.o. daily for stress ulcer prophylaxis and history of GERD ACCESS: Peripheral IV Full code Case discussed with Dr. Cano of trauma surgery, patient to be transferred to their service. Level 2 follow up. Code Status: Full
[2018-01-11] MEDS: Tiotropium Bromide [Spiriva Respimat] 2 PUFF INH SCH (11:18)
[2018-01-11] MEDS: Budesonide-Formoterol 160/4.5 MCG 6 GM Inhaler INH SCH ×2 (11:18→21:15)
--- NOTE | 2018-01-11 12:04 | P.PNCC ---
Subjective Brief History: 57-year-old male apparently slipped on a slick surface in front of his house fell backwards hit his head and states he did not lose consciousness remembers the entire event. Transferred to our institution for evaluation and was found to have intracranial hemorrhage Patient underwent workup and preliminary findings are R temporal bone fracture with small pneumocephalus R temporal subdural and subarachnoid hemorrhage, and L frontal contusion CT of the neck was negative for acute injuries Patient was evaluated by neurosurgery and then somehow admitted to medical chief gauger instead of trauma service. I was called today by Dr. Silva Stephens about this and patient is immediately transferred to trauma service 24 Hour Review/Hospital Course: 01/11/2018 Patient has been stable overnight He is awake alert oriented Neurologically fully intact complaining about some headache No lateralization no drift Repeat CAT scan does not reveal any worsening of intracranial findings Hemodynamically stable Bilateral breath sounds good inspiratory effort Patient tolerating diet well Plan Continue current medication regimen transfer to floor Most likely patient will be able to be discharged tomorrow Objective Vital Signs / I&O: Vital Signs 01/10/18 17:00 01/10/18 18:30 01/10/18 21:33 Temperature 98.3 F Pulse Rate 100 H 92 H 98 H Respiratory Rate 20 18 18 Blood Pressure 152/84 H 155/87 H 150/83 H Pulse Oximetry 97 97 01/10/18 22:00 01/10/18 22:17 01/10/18 22:41 Temperature 98.1 F Pulse Rate 120 H Respiratory Rate 16 15 20 Blood Pressure 142/95 H Pulse Oximetry 99 01/10/18 23:00 01/10/18 23:38 01/11/18 00:00 Temperature Pulse Rate 105 H 103 H Respiratory Rate 25 H 19 16 Blood Pressure 166/101 H 165/99 H Pulse Oximetry 96 92 L 01/11/18 00:20 01/11/18 01:00 01/11/18 02:00 Temperature Pulse Rate 103 H 108 H 101 H Respiratory Rate 16 19 21 Blood Pressure 165/99 H 157/94 H 155/93 H Pulse Oximetry 92 L 94 L 93 L 01/11/18 02:49 01/11/18 03:00 01/11/18 03:20 Temperature Pulse Rate 103 H Respiratory Rate 21 18 18 Blood Pressure 152/91 H Pulse Oximetry 92 L 01/11/18 04:00 01/11/18 05:00 01/11/18 06:00 Temperature 99.3 F Pulse Rate 103 H 96 H 93 H Respiratory Rate 18 19 18 Blood Pressure 152/91 H 159/89 H 146/90 H Pulse Oximetry 92 L 94 L 93 L Intake & Output 01/10/18 01/11/18 01/11/18 18:59 06:59 18:59 Intake Total 1151 / 1151 Output Total 1999 Balance -849 / -849 Weight 120.202 kg 114.1 kg Intake: IV 1101 / 1101 NS Inj 1,000 ML @ Wide Open IV. 1000 / 1000 SIG BOLUS ONE Rx#:[id number] Thiamine Inj 100 MG In NS Inj 101 / 101 100 ML @ 100 mls/hr IV.SIG DAILY [facility] Rx#:[id number] Oral 50 / 50 Output: Urine 1999 Other: # Voids 3 Date of Last Bowel Movement 01/10/18 Weight On Admission 115 kg Result Diagrams: 01/11/18 05:25 01/11/18 05:25 Imaging: Impressions Head CT 01/10/18 17:30 CONCLUSION: 1. Small amount of subdural and subarachnoid hemorrhage anteriorly predominantly in the left frontal region associated with a small hemorrhagic contusions in the medial left frontal lobe. No significant mass effect or midline shift this time. 2. Remote lacunar infarct left basal ganglia. . Cervical Spine CT 01/10/18 17:31 CONCLUSION: 1. No acute findings. Mild degenerative change. Face CT 01/10/18 17:36 CONCLUSION: 1. Nondisplaced fracture of the right temporal bone with some hemorrhage in the aerated portions of the right temporal bone. Trace pneumocephalus on the right. 2. There is also trace subdural and subarachnoid hemorrhage anteriorly predominantly of the left frontal region with a small hemorrhagic contusion of the left frontal lobe. There is also trace subarachnoid and subdural hemorrhage in the right temporal region. No significant mass effect or shift. Head CT 01/11/18 06:00 CONCLUSION: 1. No acute findings. Persistent left frontal contusion and subarachnoid hemorrhage. 2. Stable opacified ethmoids. . Assessment and Plan Attestation: Critical care 32-minute
[2018-01-11] MEDS: levETIRAcetam 500 MG Tablet PO SCH ×2 (14:21→21:14)
--- NOTE | 2018-01-11 14:21 | P.NPEVAL ---
Patient History - Record/History Review Reason for Referral: The patient is a 57 year old right handed man status post traumatic brain injury secondary to a fall sustained on 01/10/2018. This patient slipped in a puddle and fell backwards. Head CT showed left frontal contusion and SAH. Since admission, he has been A&Ox4. He is referred for baseline neurobehavioral status examination per trauma protocol to assess cognitive, behavioral and emotional aspects of the injury and to provide treatment recommendations. [facility] - History History Provided By: Patient - Medical History Medical History: Medical History (Last Reviewed 01/11/18 @ 10:18 by Zelalem Reyes MD) GERD (gastroesophageal reflux disease) Anxiety Brachial plexus disorders Chronic back pain Chronic bronchitis DDD (degenerative disc disease) Hypertension - Surgical History Surgical History: Surgical History (Last Reviewed 01/11/18 @ 10:19 by Zelalem Reyes MD) No history of previous surgery - Family History Family History: Family History (Last Reviewed 01/11/18 @ 10:19 by Zelalem Reyes MD) Mother Breast cancer Father Bladder cancer - Tobacco History Second Hand Smoke Exposure: Yes Smoking Status: Never smoker Tobacco Type: Smokeless Tobacco - Alcohol History How Often Do You Have a Drink Containing Alcohol: 4 or more times a week - Substance Use History Substance History: No History of Abuse - Travel History History of Recent Travel: No Recent Travel Out of the Country Within the Last 8 Weeks: No - Immunization History Tetanus Immunization: <5 Years Tetanus Immunization Year if Known: 2017 Hx Influenza Vaccine This Season: No Medications Active Medications Acetaminophen (Tylenol) 650 mg PO Q6H PRN PRN Reason: prn pain or temp >100.4 Hydrocodone Bitart/Acetaminophen ([place] 10/325) 1 tab PO Q4H PRN PRN Reason: pain 1-10 Last Admin: 01/11/18 10:06 Dose: 1 tab Al Hydroxide/Mg Hydroxide (Milk Of Magnesia Liq) 30 ml PO Q12H PRN PRN Reason: Mild Constipation Amitriptyline HCl (Elavil) 100 mg PO DAILY [facility] Last Admin: 01/11/18 10:14 Dose: 100 mg Amitriptyline HCl (Elavil) 75 mg PO DAILY [facility] Last Admin: 01/11/18 10:14 Dose: 75 mg Amlodipine Besylate (Norvasc) 10 mg PO DAILY [facility] Last Admin: 01/11/18 10:06 Dose: 10 mg Bisacodyl (Dulcolax Supp) 10 mg RECTAL DAILY PRN PRN Reason: SEVERE CONSITIPATION Budesonide/Formoterol Fumarate (Symbicort 160/4.5 Mcg Inh) 2 puff INH BID [facility] Last Admin: 01/11/18 11:18 Dose: Not Given Chlorhexidine Gluconate (Chlorhexidine 2% Cloth) 3 pack TOPICAL DAILY@0400 [facility] Stop: 01/16/18 03:59 Last Admin: 01/11/18 03:24 Dose: 3 pack Chlorhexidine Gluconate (Chlorhexidine 2% Cloth) 3 pack TOPICAL DAILY@0400 PRN PRN Reason: Extra cloth needed Stop: 01/16/18 03:59 Cyclobenzaprine HCl (Flexeril) 10 mg PO TID PRN PRN Reason: Muscle Spasm Flumazenil (Romazecon Inj) 0.2 mg IV.PUSH Q1M PRN PRN Reason: OVERSEDATION Gabapentin (Neurontin) 800 mg PO BID [facility] Last Admin: 01/11/18 10:05 Dose: 800 mg Hydralazine HCl (Apresoline Inj) 10 mg IV.PUSH Q30M PRN PRN Reason: SBP >160 Magnesium Sulfate 4 gm/ Sodium (Chloride) 100 mls @ 50 mls/hr IV.SIG UNSCH PRN PRN Reason: For Magnesium 0.9 - 1.1 mg/dL Magnesium Sulfate 2 gm/ Sodium (Chloride) 100 mls @ 50 mls/hr IV.SIG UNSCH PRN PRN Reason: For Magnesium 1.2 - 1.6 mg/dL Potassium Chloride (Kcl 40 Meq Premix Inj) 40 meq in 100 mls @ 25 mls/hr IV.SIG Q2H PRN PRN Reason: For Potassium 2.8 - 3.2 mEq/L Potassium Chloride (Kcl 20 Meq Premix Inj) 20 meq in 100 mls @ 50 mls/hr IV.SIG Q2H PRN PRN Reason: For Potassium 3.3 - 3.5 mEq/L Potassium Chloride (Kcl 40 Meq Premix Inj) 40 meq in 100 mls @ 25 mls/hr IV.SIG UNSCH PRN PRN Reason: For Potassium 3.3 - 3.5 mEq/L Potassium Phosphate 30 mmol/ (Sodium Chloride) 260 mls @ 42 mls/hr IV.SIG UNSCH PRN PRN Reason: SEE LABEL COMMENTS Sodium Phosphate 30 mmol/ (Sodium Chloride) 260 mls @ 42 mls/hr IV.SIG UNSCH PRN PRN Reason: For Phosphorus < 2.5 mg/dL Potassium Chloride (Kcl 20 Meq Premix Inj) 20 meq in 100 mls @ 50 mls/hr IV.SIG Q2H PRN PRN Reason: For Potassium 2.8 - 3.2 mEq/L Nicardipine HCl 25 mg/ Sodium (Chloride) 260 mls @ 52 mls/hr IV.CONT TITRATE PRN; Protocol PRN Reason: Per Protocol Thiamine HCl 100 mg/ Sodium (Chloride) 101 mls @ 100 mls/hr IV.SIG DAILY [facility] Stop: 01/14/18 10:01 Last Infusion: 01/11/18 04:20 Dose: Infused Lactulose (Lactulose Liq) 30 ml PO DAILY PRN PRN Reason: SEVERE CONSITIPATION Levetiracetam (Keppra) 500 mg PO BID [facility] Magnesium Oxide (Mag-Ox) 800 mg PO UNSCH PRN PRN Reason: For Magnesium 1.2 - 1.6 mg/dL Metoclopramide HCl (Reglan Inj) 10 mg IV.PUSH Q8H PRN; Protocol PRN Reason: NAUSEA OR VOMITING Last Admin: 01/11/18 11:16 Dose: 10 mg Morphine Sulfate (Morphine Inj) 2 mg IV.PUSH Q3H PRN PRN Reason: BREAKTHROUGH PAIN Multivitamins (Theragran) 1 tab PO DAILY [facility] Last Admin: 01/11/18 10:06 Dose: 1 tab Pantoprazole Sodium (Protonix) 40 mg PO DAILY [facility] Last Admin: 01/11/18 10:05 Dose: 40 mg Tiotropium [place] [ Spiriva Respimat] 2 Puff 0 each INH DAILY [facility] Last Admin: 01/11/18 11:18 Dose: Not Given Potassium Bicarb/Potassium Chloride (K-Lyte Cl Eff) 50 meq PO UNSCH PRN PRN Reason: For Potassium 3.3 - 3.5 mEq/L Potassium Phosphate (K-Phos Original) 2,000 mg PO Q4H PRN PRN Reason: Phosphorus Less Than 2.5 mg/dL Potassium Phosphate (K-Phos Original) 2,000 mg PO UNSCH PRN PRN Reason: SEE LABEL COMMENTS Promethazine HCl (Phenergan Inj) 25 mg IM Q6H PRN PRN Reason: nausea Last Admin: 01/11/18 01:57 Dose: 25 mg Senna/Docusate Sodium (Candice-Colace) 1 tab PO BID [facility] Last Admin: 01/11/18 10:14 Dose: 1 tab Sennosides (Senokot) 17.2 mg PO Q12H PRN PRN Reason: Moderate Constipation Sodium Chloride (Ns Flush) 2 ml IV.FLUSH BID [facility] Last Admin: 01/11/18 10:14 Dose: 2 ml Sodium Chloride (Ns Flush) 2 ml IV.FLUSH PRN PRN PRN Reason: FLUSH AFTER USING IV ACCESS Spironolactone (Aldactone) 25 mg PO DAILY [facility] Last Admin: 01/11/18 10:06 Dose: 25 mg Mental Status Assessment - Mental Status Orientation: oriented to: Self, Place, Time, Situation Mental Status: WFL: Thought processing, Language/interactions, Attention, Learning/memory, Problem-solving, Visuospatial/construction, Self-regulation, Other Absent: Hallucinations, Delusions Adjustment/Coping Assessment - Adjustment/Coping Adjustment/Coping: None: Depression, Anxiety, Awareness, Insight - Observation In terms of emotional functioning, the patient demonstrated normal adjustment. This patient demonstrated no signs of agitation, impulsivity or disinhibition, nor was there remarkable evidence of a formal thought disorder or psychosis. There was no evidence of depression or anxiety, although he is treated for depression. Thought content was free from suicidal, homicidal or paranoid ideation, and thought processes were logical and goal-directed but bradyphrenic. The patients mood was euthymic, and his affect was stable and appropriate. The patient appears to possess insight and awareness into their situation and within the limits of this brief evaluation, adequate judgment. Behavior - Behavior Treatment Engagement: Average - Observation Behaviorally, the patient demonstrated no signs of agitation, impulsivity or disinhibition. There was no remarkable evidence of a formal thought disorder or psychosis. 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 [facility] Level: Level VII Maximizing Acute Care Outcome: It is recommended that the patient be monitored for emergent behavioral impulsivity as the medical condition evolves. This patients neuropathological challenges may limit rehabilitation potential going forward, and these challenges will require specialized therapeutic skills to maximize outcome. Additionally, the patients family is experiencing ongoing issues of adjustment given the traumatic nature of the injury, and they may benefit from ongoing psychological assistance. At this point in the recovery process, the patient does have cognitive capacity as the patient is able to understand a situation and its likely consequences, and he is able to manipulate information rationally. Cognitive capacity will be assessed throughout the recovery process. - Discharge Planning Anticipated Problems: Ongoing areas of concern will include behavioral impulsivity, lack of insight and judgment, which is expected to improve with time and treatment. Treatment Plan: This clinician will continue to follow with you throughout the course of this patients rehabilitation treatment, and I will be available to meet with the patients family/support system to facilitate their understanding and the ongoing care of their family member. The goals of neuropsychological intervention shall be both educational and supportive to the family/support system as is deemed clinically appropriate. I would be happy to see this patient as an outpatient in my clinic after his discharge. Alternatively, he could be referred to the [facility] and I can facilitate his movement throughout the continuum of care. Thank you for the opportunity to assist in this patients care. Simone Elise, Ph.D., ABPP Board Certified in Clinical Neuropsychology [place] [employer] Professional Psychology [place] Licensed Psychologist #[id number]
[2018-01-11] MEDS: Acetaminophen 325 MG Tablet PO PRN (15:46)
[2018-01-11] MEDS: Morphine Sulfate Inj 2 MG/ML Vial IV.PUSH PRN (19:50)
[2018-01-12] MEDS: Chlorhexidine Gluconate 2% 1 Pack (2 Cloths) TOPICAL SCH (05:02)
[2018-01-12] MEDS: Morphine Sulfate Inj 2 MG/ML Vial IV.PUSH PRN ×4 (05:12→23:27)
[2018-01-12 05:19] LABS: Baso % (Auto) 0.3 % (0.0-2.0); Eos # (Auto) 0.1 th/mm3 (0.0-0.4); Eos % (Auto) 0.7 % (0.0-4.0); Hematocrit 42.8 % (39.0-51.0); Hemoglobin 14.4 gm/dL (13.0-17.0); Lymph # (Auto) 1.2 th/mm3 (1.0-4.8); Lymph % (Auto) 14.8 % (9.0-44.0); Mean Corpuscular HGB Conc 33.7 % (32.0-36.0); Mean Corpuscular Hemoglobin 31.4 pg (27.0-34.0); Mean Corpuscular Volume 93.2 fL (80.0-100.0); Mean Platelet Volume 7.2 fL (7.0-11.0); Mono # (Auto) 0.7 th/mm3 (0.0-0.9); Mono % (Auto) 8.8 % (0.0-8.0); Neut # (Auto) 5.9 th/mm3 (1.8-7.7); Neut % (Auto) 75.4 % (16.0-70.0); Platelet Count 249 th/mm3 (150-450); Red Blood Count 4.59 mil/mm3 (4.50-5.90); Red Cell Distribution Width 13.7 % (11.6-17.2); White Blood Count 7.9 th/mm3 (4.0-11.0)
[2018-01-12 05:49] LABS: Albumin 3.6 g/dL (3.4-5.0); Anion Gap 9 meq/L (5-15); Aspartate Aminotransferase 19 U/L (15-37); Blood Urea Nitrogen 9 mg/dL (7-18); Calcium 8.4 mg/dL (8.5-10.1); Carbon Dioxide 24.9 meq/L (21.0-32.0); Chloride 103 meq/L (98-107); Glomerular Filtration Rate Greater Than 89 mL/min (>89); Glucose,Random 89 mg/dL (74-106); Potassium 3.7 meq/L (3.5-5.1); Sodium 137 meq/L (136-145)
[2018-01-12 05:52] LABS: Alanine Aminotransferase 29 U/L (12-78); Alkaline Phosphatase 78 U/L (45-117); Total Protein 8.1 g/dL (6.4-8.2)
[2018-01-12] MEDS: Amitriptyline 100 MG Tablet PO SCH ×2 (07:21→11:42)
[2018-01-12] MEDS: Spironolactone 25 MG Tablet PO SCH (09:57)
[2018-01-12] MEDS: amLODIPine 10 MG Tablet PO SCH (09:57)
[2018-01-12] MEDS: Gabapentin 400 MG Capsule PO SCH ×2 (09:58→20:41)
[2018-01-12] MEDS: Senna/Docusate Sodium 8.6/50 MG Tablet PO SCH ×2 (09:58→20:41)
[2018-01-12] MEDS: levETIRAcetam 500 MG Tablet PO SCH ×2 (09:58→20:41)
[2018-01-12] MEDS: Acetaminophen 325 MG Tablet PO PRN (09:58)
--- NOTE | 2018-01-12 11:13 | P.PNCC ---
Subjective Brief History: 57-year-old male apparently slipped on a slick surface in front of his house fell backwards hit his head and states he did not lose consciousness remembers the entire event. Transferred to our institution for evaluation and was found to have intracranial hemorrhage Patient underwent workup and preliminary findings are R temporal bone fracture with small pneumocephalus R temporal subdural and subarachnoid hemorrhage, and L frontal contusion CT of the neck was negative for acute injuries Patient was evaluated by neurosurgery and then somehow admitted to medical head well puller instead of trauma service. I was called today by Dr. Silva Stephens about this and patient is immediately transferred to trauma service 24 Hour Review/Hospital Course: 01/11/2018 Patient has been stable overnight He is awake alert oriented Neurologically fully intact complaining about some headache No lateralization no drift Repeat CAT scan does not reveal any worsening of intracranial findings Hemodynamically stable Bilateral breath sounds good inspiratory effort Patient tolerating diet well Plan Continue current medication regimen transfer to floor Most likely patient will be able to be discharged tomorrow 01/12/2018 Patient is awake alert and oriented Still dizzy when getting out of bed nauseous vomited once and all related obviously to irritation no meningeal signs and intracranial hemorrhage Tolerates diet well He is still unsteady on his feet We will discharge patient tomorrow Patient has been waiting for the floor bed for the last 48 hours Objective Vital Signs / I&O: Vital Signs 01/11/18 12:00 01/11/18 13:00 01/11/18 14:00 Temperature 98.2 F 98.6 F 98.2 F Pulse Rate 87 92 H 87 Respiratory Rate 20 18 20 Blood Pressure 142/86 H 146/89 H 142/86 H Pulse Oximetry 97 98 97 01/11/18 15:00 01/11/18 16:00 01/11/18 17:00 Temperature 98.6 F 98.2 F 98.6 F Pulse Rate 92 H 87 92 H Respiratory Rate 18 20 18 Blood Pressure 146/89 H 142/86 H 146/89 H Pulse Oximetry 98 97 98 01/11/18 18:00 01/11/18 19:52 01/11/18 20:00 Temperature 98.6 F 100.2 F H Pulse Rate 92 H 99 H Respiratory Rate 18 13 18 Blood Pressure 146/89 H 161/88 H Pulse Oximetry 98 93 L 01/11/18 21:15 01/12/18 00:00 01/12/18 01:24 Temperature Pulse Rate Respiratory Rate 18 23 22 Blood Pressure Pulse Oximetry 01/12/18 01:54 01/12/18 02:27 01/12/18 02:29 Temperature Pulse Rate 96 H 95 H Respiratory Rate 17 17 17 Blood Pressure 144/81 H 144/81 H Pulse Oximetry 91 L 91 L 01/12/18 04:00 01/12/18 05:14 01/12/18 06:44 Temperature Pulse Rate Respiratory Rate 17 20 15 Blood Pressure Pulse Oximetry 01/12/18 09:57 Temperature Pulse Rate Respiratory Rate 16 Blood Pressure Pulse Oximetry Intake & Output 01/11/18 01/12/18 01/12/18 18:59 06:59 18:59 Intake Total 50 / 50 101 / 101 Output Total 1999 800 / 800 Balance -1950 / -1950 -699 / -699 Weight 111.5 kg Intake: IV 101 / 101 Thiamine Inj 100 MG In NS Inj 101 / 101 100 ML @ 100 mls/hr IV.SIG DAILY [facility] Rx#:[id number] Oral 50 / 50 Output: Urine 1999 800 / 800 Other: # Voids 3 1 Date of Last Bowel Movement 01/10/18 01/10/18 Result Diagrams: 01/12/18 04:36 01/12/18 04:36 Disinhibition Score: 14.00 Aggression Score: 14.00 Lability Score: 14.00 Agitated Behavior Total Score: 14
[2018-01-12] MEDS: Budesonide-Formoterol 160/4.5 MCG 6 GM Inhaler INH SCH ×2 (11:45→20:42)
[2018-01-12] MEDS: Tiotropium Bromide [Spiriva Respimat] 2 PUFF INH SCH (11:45)
[2018-01-12] MEDS: Thiamine Inj 100 MG in Sodium Chlor 0.9% Inj 100 ML IV.SIG SCH (11:45)
--- NOTE | 2018-01-12 12:48 | P.PNNS ---
Subjective Interval history: Complains of headache Physical Exam Vital signs: Vital Signs 01/11/18 13:00 01/11/18 14:00 01/11/18 15:00 Temperature 98.6 F 98.2 F 98.6 F Pulse Rate 92 H 87 92 H Respiratory Rate 18 20 18 Blood Pressure 146/89 H 142/86 H 146/89 H Pulse Oximetry 98 97 98 01/11/18 16:00 01/11/18 17:00 01/11/18 18:00 Temperature 98.2 F 98.6 F 98.6 F Pulse Rate 87 92 H 92 H Respiratory Rate 20 18 18 Blood Pressure 142/86 H 146/89 H 146/89 H Pulse Oximetry 97 98 98 01/11/18 19:52 01/11/18 20:00 01/11/18 21:15 Temperature 100.2 F H Pulse Rate 99 H Respiratory Rate 13 18 18 Blood Pressure 161/88 H Pulse Oximetry 93 L 01/12/18 00:00 01/12/18 01:24 01/12/18 01:54 Temperature Pulse Rate Respiratory Rate 23 22 17 Blood Pressure Pulse Oximetry 01/12/18 02:27 01/12/18 02:29 01/12/18 04:00 Temperature Pulse Rate 96 H 95 H Respiratory Rate 17 17 17 Blood Pressure 144/81 H 144/81 H Pulse Oximetry 91 L 91 L 01/12/18 05:14 01/12/18 06:44 01/12/18 09:57 Temperature Pulse Rate Respiratory Rate 20 15 16 Blood Pressure Pulse Oximetry 01/12/18 11:45 Temperature Pulse Rate Respiratory Rate 16 Blood Pressure Pulse Oximetry Intake & Output 01/11/18 01/12/18 01/12/18 18:59 06:59 18:59 Intake Total 50 / 50 101 / 101 Output Total 1999 800 / 800 Balance -1950 / -1950 -699 / -699 Weight 111.5 kg Intake: IV 101 / 101 Thiamine Inj 100 MG In NS Inj 101 / 101 100 ML @ 100 mls/hr IV.SIG DAILY [facility] Rx#:[id number] Oral 50 / 50 Output: Urine 1999 800 / 800 Other: # Voids 3 1 Date of Last Bowel Movement 01/10/18 01/10/18 Narrative: A&O x 3 CN II-XII intact Motor 5/5 UE/LE Assessment and Plan - Assessment (1) Traumatic brain injury Code(s): S06.9X9A - Unspecified intracranial injury with loss of consciousness of unspecified duration, initial encounter Status: Acute Qualifiers: Encounter type: initial encounter Loss of consciousness presence/duration: without LOC Qualified Code(s): S06.9X0A - Unspecified intracranial injury without loss of consciousness, initial encounter (2) Temporal skull fracture Code(s): S02.19XA - Other fracture of base of skull, initial encounter for closed fracture Status: Acute Qualifiers: Encounter type: initial encounter Fracture type: closed Qualified Code(s) : S02.19XA - Other fracture of base of skull, initial encounter for closed fracture (3) Frontal lobe contusion Code(s): S06.339A - Contusion and laceration of cerebrum, unspecified, with loss of consciousness of unspecified duration, initial encounter Status: Acute Qualifiers: Laterality: left Loss of consciousness presence/duration: without LOC (4) Contusion of right temporal lobe Code(s): S06.319A - Contusion and laceration of right cerebrum with loss of consciousness of unspecified duration, initial encounter Status: Acute Qualifiers: Encounter type: initial encounter Loss of consciousness presence/duration: without LOC Qualified Code(s): S06.310A - Contusion and laceration of right cerebrum without loss of consciousness, initial encounter (5) Alcohol use Code(s): Z78.9 - Other specified health status Status: Chronic - Plan 57-year-old gentleman with a small left frontal subdural hemorrhage with frontal lobe contusion and right temporal lobe contusions along with skull fracture without mass-effect or midline shift. Follow-up scan this morning is stable. Recommend increase diet and activity status as tolerated and continued observation along with the close monitoring for alcohol withdrawal. 01/12/18: Stable, complaining of headache, refusing to work with PT in AM due to headache , will try again later Intact exam
[2018-01-13] MEDS: Acetaminophen 325 MG Tablet PO PRN ×2 (02:46→08:27)
[2018-01-13 02:57] VITALS: TEMP 99.2; O2SAT 95
[2018-01-13] MEDS: Chlorhexidine Gluconate 2% 1 Pack (2 Cloths) TOPICAL SCH (04:32)
[2018-01-13 05:11] LABS: Baso % (Auto) 0.3 % (0.0-2.0); Eos % (Auto) 0.6 % (0.0-4.0); Hematocrit 42.1 % (39.0-51.0); Hemoglobin 14.3 gm/dL (13.0-17.0); Lymph # (Auto) 1.3 th/mm3 (1.0-4.8); Lymph % (Auto) 16.2 % (9.0-44.0); Mean Corpuscular HGB Conc 33.8 % (32.0-36.0); Mean Corpuscular Hemoglobin 31.6 pg (27.0-34.0); Mean Corpuscular Volume 93.5 fL (80.0-100.0); Mean Platelet Volume 7.2 fL (7.0-11.0); Mono # (Auto) 0.7 th/mm3 (0.0-0.9); Neut # (Auto) 5.8 th/mm3 (1.8-7.7); Neut % (Auto) 73.9 % (16.0-70.0); Platelet Count 266 th/mm3 (150-450); Red Blood Count 4.51 mil/mm3 (4.50-5.90); Red Cell Distribution Width 13.2 % (11.6-17.2); White Blood Count 7.9 th/mm3 (4.0-11.0)
[2018-01-13 05:33] LABS: Alanine Aminotransferase 27 U/L (12-78); Albumin 3.6 g/dL (3.4-5.0); Anion Gap 8 meq/L (5-15); Aspartate Aminotransferase 17 U/L (15-37); Blood Urea Nitrogen 12 mg/dL (7-18); Calcium 8.7 mg/dL (8.5-10.1); Chloride 102 meq/L (98-107); Glomerular Filtration Rate Greater Than 89 mL/min (>89); Glucose,Random 90 mg/dL (74-106); Potassium 3.8 meq/L (3.5-5.1); Sodium 136 meq/L (136-145)
[2018-01-13 05:36] LABS: Alkaline Phosphatase 76 U/L (45-117); Total Protein 8.4 g/dL (6.4-8.2)
[2018-01-13 06:29] VITALS: BP 155/91; PULSE 66
[2018-01-13] MEDS: amLODIPine 10 MG Tablet PO SCH (10:23)
[2018-01-13] MEDS: levETIRAcetam 500 MG Tablet PO SCH (10:24)
[2018-01-13] MEDS: Spironolactone 25 MG Tablet PO SCH (10:24)
[2018-01-13] MEDS: Gabapentin 400 MG Capsule PO SCH (10:24)
[2018-01-13] MEDS: Budesonide-Formoterol 160/4.5 MCG 6 GM Inhaler INH SCH (10:25)
[2018-01-13] MEDS: Tiotropium Bromide [Spiriva Respimat] 2 PUFF INH SCH (10:25)
[2018-01-13] MEDS: Senna/Docusate Sodium 8.6/50 MG Tablet PO SCH (10:25)
[2018-01-13] MEDS: Amitriptyline 100 MG Tablet PO SCH (10:27)
--- NOTE | 2018-01-13 10:27 | P.DS ---
Date of admission: 01/10/18 19:10 Primary care physician: David Rahman MD Attending physician on discharge: Jonathon Cano Anticipated date of discharge: 01/13/18 Brief History from admission: Mechanical fall. DS: Medications - Discharge Medications Prescriptions: levetiracetam [Keppra] 500 mg PO BID 6 Days #12 tab ondansetron [Zofran ODT] 4 mg PO Q6-8H PRN 7 Days #28 tab PRN Reason: Nausea DS: Summary Hospital Course: [place]: This is a 57-year-old male who sustained a mechanical fall. He slipped and fell on a wet surface. He hit the back of his head, and was able to get up unassisted. He had nausea and epistaxis, and bleeding from the right ear. INJURIES: Concussion Scalp laceration (ana) RIGHT temporal bone fracture w/ pneumocephalus RIGHT temporal SHD and SAH LEFT frontal contusion Remote lacunar infarct left basal ganglia. PMHx: ETOH. HTN. COPD. Chronic pain. Brachial plexus injury Procedures: Consults: Neurosurgery. Neuropsych. Case management. Hospital Course: 01/11/2018 Patient has been stable overnight He is awake alert oriented Neurologically fully intact complaining about some headache No lateralization no drift Repeat CAT scan does not reveal any worsening of intracranial findings Hemodynamically stable Bilateral breath sounds good inspiratory effort Patient tolerating diet well Plan Continue current medication regimen transfer to floor Most likely patient will be able to be discharged tomorrow 01/12/2018 Patient is awake alert and oriented Still dizzy when getting out of bed nauseous vomited once and all related obviously to irritation no meningeal signs and intracranial hemorrhage Tolerates diet well He is still unsteady on his feet We will discharge patient tomorrow Patient has been waiting for the floor bed for the last 48 hours 01/13/2018 Patient awake and alert. at bedside Occasionally endorses nausea/dizziness. Patient really wants to go home. The patient is now tolerating a po diet. Eating and drinking well. Pain is being managed well with PO pain medications, patient has a current pain prescription for [facility] due to a history of chronic pain. (NO driving while taking narcotic pain medication enforced to patient.) We have recommended to patient to continue with stool softeners while taking narcotic pain medications to prevent constipation. Pt has been participating in PT and OT while admitted at [facility] and has been ambulating with their assistance and independently. No home PT needs. All follow up appointments have been provided and discussed with the patient. It is recommended that the patient keeps all his follow up appointments for continued recovery. Patient's condition and plan of care discussed with collaborating trauma surgeon. He is agreeable to plan for discharge today. Therefore, the patient is stable to be safely discharged home from a trauma surgery standpoint. Thank you for allowing us to participate in his care. We wish Norm the best in his recovery. - Time Spent with Patient Total time spent providing and/or coordinating discharge services: Greater than 30 minutes - Quality: VTE Deep Vein Thrombosis/Pulmonary Embolism Present on Admission: No Exam Vital signs: Vital Signs 01/12/18 10:29 01/12/18 11:45 01/12/18 12:00 Temperature 98.6 F Pulse Rate 90 Respiratory Rate 16 16 Blood Pressure 142/89 H Pulse Oximetry 94 L 01/12/18 14:29 01/12/18 16:00 01/12/18 18:29 Temperature 98.1 F 98.8 F Pulse Rate 88 92 H Respiratory Rate 16 Blood Pressure 148/70 H 156/78 H Pulse Oximetry 95 96 01/12/18 20:00 01/12/18 20:42 01/12/18 21:12 Temperature Pulse Rate Respiratory Rate 16 13 Blood Pressure Pulse Oximetry 96 01/12/18 22:00 01/12/18 23:29 01/13/18 02:00 Temperature 99.2 F Pulse Rate 91 H 87 Respiratory Rate 18 Blood Pressure 151/75 H 145/89 H Pulse Oximetry 96 95 01/13/18 03:16 01/13/18 04:31 01/13/18 05:01 Temperature Pulse Rate Respiratory Rate 16 16 21 Blood Pressure Pulse Oximetry 01/13/18 06:00 Temperature Pulse Rate 66 Respiratory Rate Blood Pressure 155/91 H Pulse Oximetry 95 Intake & Output 01/12/18 01/13/18 01/13/18 18:59 06:59 18:59 Intake Total 280 / 280 Output Total 650 / 650 600 / 600 Balance -370 / -370 -600 / -600 Weight 107.4 kg Intake: Oral 280 / 280 Output: Urine 650 / 650 600 / 600 Other: # Voids 1 2 Date of Last Bowel Movement 01/10/18 01/10/18 Narrative: GENERAL: This is a 57-year-old male sitting up in bed. No distress noted. SKIN: Warm and dry. HEAD: Atraumatic. Normocephalic. EYES: PERRLA ENT: No nasal bleeding or discharge. Mucous membranes pink and moist. NECK: Trachea midline. No JVD. CARDIOVASCULAR: Regular rate and rhythm. RESPIRATORY: No accessory muscle use. Lungs are clear to auscultation. Breath sounds equal bilaterally. No distress or dyspnea. GASTROINTESTINAL: BS + x 4 quads. Abdomen soft, non-tender, nondistended. MUSCULOSKELETAL: Extremities without cyanosis, or edema. + peripheral pulses x 4 extremities. Warm with good capillary refill and sensation. MAEW. NEUROLOGICAL: Awake and alert. Normal speech and pattern. Results Procedures completed during hospitalization: , Labs on day of discharge: Labs from last 24 hours 01/13/18 01/13/18 04:31 04:31 WBC 7.9 RBC 4.51 Hgb 14.3 Hct 42.1 MCV 93.5 MCH 31.6 MCHC 33.8 RDW 13.2 Plt Count 266 MPV 7.2 Neut % (Auto) 73.9 H Lymph % (Auto) 16.2 [place] % (Auto) 9.0 H Eos % (Auto) 0.6 Baso % (Auto) 0.3 Neut # (Auto) 5.8 Lymph # (Auto) 1.3 [place] # (Auto) 0.7 Eos # (Auto) 0.0 Baso # (Auto) 0.0 WBC Differential . Differential Comment Auto diff final Sodium 136 Potassium 3.8 Chloride 102 Carbon Dioxide 26.0 Anion Gap 8 BUN 12 Creatinine 0.66 Estimated GFR Greater than 89 Random Glucose 90 Calcium 8.7 Total Bilirubin 0.7 AST 17 ALT 27 Alkaline Phosphatase 76 Total Protein 8.4 H Albumin 3.6 - Impressions ITS Impressions Cervical Spine CT 01/10/18 17:31 CONCLUSION: 1. No acute findings. Mild degenerative change. Face CT 01/10/18 17:36 CONCLUSION: 1. Nondisplaced fracture of the right temporal bone with some hemorrhage in the aerated portions of the right temporal bone. Trace pneumocephalus on the right. 2. There is also trace subdural and subarachnoid hemorrhage anteriorly predominantly of the left frontal region with a small hemorrhagic contusion of the left frontal lobe. There is also trace subarachnoid and subdural hemorrhage in the right temporal region. No significant mass effect or shift. Head CT 01/11/18 06:00 CONCLUSION: 1. No acute findings. Persistent left frontal contusion and subarachnoid hemorrhage. 2. Stable opacified ethmoids. . Discharge Plan - Discharge Disposition Patient Disposition: Discharge Home - Discharge Condition Condition: Stable - Discharge Order Discharge Orders: Discharge Order (Routine); Ordered 01/13/18 Ordered By: Snow Fiore - Discharge Details Anticipated Discharge Date: 01/13/18 - Physicians Team Primary Care Provider: David Rahman Attending Provider: Jonathon Cano Other Providers: Zelalem Reyes MD ; August Caballero MD ; Bony Horn MD ; [employer] ; Naseem Preciado MD ; Snow Fiore ARNP ; Nathan Rush MD ; Lola Gross MD ; Meme Ramirez ARNP ; Jonathon Cano MD ; Simone Elise, PhD
[2018-01-13 10:28] VITALS: RESP 18
--- NOTE | 2018-01-14 20:29 | ECG ---
Date Performed: 01/10/2018 Time Performed: 17:19:43 PTAGE: 57 years EKG: Sinus rhythm POSSIBLE LEFT ATRIAL ENLARGEMENT MARKED LEFT AXIS DEVIATION Since previous tracing, no significant c hange noted ABNORMAL ECG PREVIOUS TRACING : 01/03/2018 21.39.30 DOCTOR: Will Laurent Interpretating Date/Time 01/14/2018 20:27:21
== END 2018-01-13 12:08 | disposition home or self-care (01) ==
LOC: NEPE 16:54 → NEDA 19:10 → N03 21:45
PROVIDERS: ADMIT Surgery; ATTEND Surgery